=== PATIENT | female | born 1965 | race Caucasian/White ===

== ENCOUNTER 2017-08-11 18:04 | Emergency (ER) | payer OTHER ==
--- NOTE | 2017-08-11 20:01 | ER ---
Nurse's Notes [facility] Name: Ronna Pearson Age: 51 yrs Sex: Female : 1965 Arrival Date: 08/11/2017 Time: 18:07 Bed 10 Private MD: Diagnosis: Dental caries Presentation: 08/11 18:16 Presenting complaint: Patient states: yesterday morning i noticed swelling on my face, hj tooth problem, all my teeth are bad; reports chills;. Transition of care: patient was not received from another setting of care. Onset of symptoms was August 11, 2017. Care prior to arrival: None. 18:16 Method Of Arrival: Ambulatory hj 18:16 Acuity: NILO 4 hj Triage Assessment: 18:18 General: Appears in no apparent distress. uncomfortable, Behavior is calm, cooperative, hj appropriate for age. Pain: Complains of pain in right cheek. 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 - Social history:: Smoking status: Patient uses tobacco products. Screenin:27 Abuse screen: Denies threats or abuse. Denies injuries from another. Nutritional ao screening: No deficits noted. Tuberculosis screening: No symptoms or risk factors identified. Fall Risk None identified. Assessment: 20:00 General: Appears in no apparent distress. comfortable, Behavior is calm, cooperative, ao appropriate for age. General: Reports Dental Caries. Pain: Complains of pain in face. Neuro: Level of Consciousness is awake, alert, obeys commands, Oriented to person, place, time, situation, Moves all extremities. Speech is normal, Facial symmetry appears normal, Pupils are PERRLA. Cardiovascular: Heart tones S1 S2 Capillary refill < 3 seconds Patient's skin is warm and dry. Respiratory: Airway is patent Respiratory effort is even, unlabored, Respiratory pattern is regular, symmetrical, Breath sounds are clear bilaterally. GI: No signs and/or symptoms were reported involving the gastrointestinal system. : No signs and/or symptoms were reported regarding the genitourinary system. EENT: No signs and/or symptoms were reported regarding the EENT system. Derm: Swelling in the face noted. Musculoskeletal: Swelling present in face. Vital Signs: 18:19 BP 127 / 85; Pulse 86; Resp 18; Temp 97.4(TE); Pulse Ox 96% on R/A; Weight 54.43 kg; hj Height 5 ft. 3 in. (160.02 cm); Pain 10/10; 20:10 BP 125 / 85; Pulse 84; Resp 18; Pulse Ox 99% ; ao 18:19 Body Mass Index 21.26 (54.43 kg, 160.02 cm) hj ED Course: 18:07 Patient arrived in ED. rg4 18:17 Triage completed. hj 18:18 Arm band placed on right wrist. hj 19:33 Reyes Samuels RN is Primary Nurse. ao 19:36 Jesse Beck NP is PHCP. pm1 19:36 Daryn Mcmahan MD is Attending Physician. pm1 20:27 No provider procedures requiring assistance completed. Patient did not have IV access ao during this emergency room visit. 20:28 Patient has correct armband on for positive identification. ao Administered Medications: 20:17 Drug: [place] 5 mg-325 mg 1 tabs Route: PO; ao 20:17 Drug: Clindamycin 600 mg Route: IM; Site: left deltoid; ao Outcome: 20:01 Discharge ordered by MD. pm1 20:28 Discharged to home ambulatory. ao 20:28 Condition: stable 20:28 Discharge instructions given to patient, Instructed on discharge instructions, follow up and referral plans. Demonstrated understanding of instructions, follow-up care, medications, Prescriptions given X 2. 20:31 Patient left the ED. ao Signatures: Ryan Wilkes RN RN Reyes Samuels RN RN ao Marinas, Patrick, NP HIRED HELP pm1 Adriana Turpin rg4 Corrections: (The following items were deleted from the chart) 18:20 18:19 Pulse 86bpm; Resp 18bpm; Pulse Ox 96% RA; Temp 97.4F Temporal; 54.43 kg; Height 5 hj ft. 3 in.; BMI: 21.2; Pain 10/10; hj
--- NOTE | 2017-08-11 20:01 | EDPHYS ---
Physician Documentation [facility] Name: Ronna Pearson Age: 51 yrs Sex: Female : 1965 Arrival Date: 08/11/2017 Time: 18:07 Bed 10 Private MD: ED Physician Daryn Mcmahan HPI: 08/11 21:00 This 51 yrs old Female presents to ER via Ambulatory with complaints of pm1 Facial Swelling and dental pain. 08/12 03:22 The patient presents with pain, swelling. The problem is located in the right cheek. pm1 Onset: The symptoms/episode began/occurred yesterday. Duration: The symptoms are continuous. Modifying factors: The symptoms are alleviated by nothing, the symptoms are aggravated by chewing, food. Associated signs and symptoms: Pertinent positives: swelling, Pertinent negatives: dysphagia, inability to eat, vomiting. Severity of symptoms: in the emergency department the symptoms are actually worse. The patient has experienced similar episodes in the past, multiple times. 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 - Social history:: Smoking status: Patient uses tobacco products. ROS: 21:00 Constitutional: Negative for fever, chills, and weight loss, Eyes: Negative for injury, pm1 pain, redness, and discharge. 21:00 Neck: Negative for injury, pain, and swelling, Cardiovascular: Negative for chest pain, palpitations, and edema, Respiratory: Negative for shortness of breath, cough, wheezing, and pleuritic chest pain, Abdomen/GI: Negative for abdominal pain, nausea, vomiting, diarrhea, and constipation, Back: Negative for injury and pain, MS/Extremity: Negative for injury and deformity, Skin: Negative for injury, rash, and discoloration, Neuro: Negative for headache, weakness, numbness, tingling, and seizure. 21:00 ENT: Positive for dental pain, Negative for ear pain, sore throat. Exam: 21:00 Constitutional: This is a well developed, well nourished patient who is awake, alert, pm1 and in no acute distress. Head/Face: Normocephalic, atraumatic. Eyes: Pupils equal round and reactive to light, extra-ocular motions intact. Lids and lashes normal. Conjunctiva and sclera are non-icteric and not injected. Cornea within normal limits. Periorbital areas with no swelling, redness, or edema. 21:00 Neck: Trachea midline, no thyromegaly or masses palpated, and no cervical lymphadenopathy. Supple, full range of motion without nuchal rigidity, or vertebral point tenderness. No Meningismus. Chest/axilla: Normal chest wall appearance and motion. Nontender with no deformity. No lesions are appreciated. Cardiovascular: Regular rate and rhythm with a normal S1 and S2. No gallops, murmurs, or rubs. Normal PMI, no JVD. No pulse deficits. Respiratory: Lungs have equal breath sounds bilaterally, clear to auscultation and percussion. No rales, rhonchi or wheezes noted. No increased work of breathing, no retractions or nasal flaring. Back: No spinal tenderness. No costovertebral tenderness. Full range of motion. Skin: Warm, dry with normal turgor. Normal color with no rashes, no lesions, and no evidence of cellulitis. MS/ Extremity: Pulses equal, no cyanosis. Neurovascular intact. Full, normal range of motion. 21:00 ENT: External ear(s): are unremarkable, Ear canal(s): are normal, TM's: are normal, Nose: is normal, Mouth: is normal, Posterior pharynx: is normal, Dental exam: abscess, is not appreciated, dental caries, that is severe, diffusely. 21:00 Neuro: Orientation: is normal, Motor: moves all fours. Vital Signs: 18:19 BP 127 / 85; Pulse 86; Resp 18; Temp 97.4(TE); Pulse Ox 96% on R/A; Weight 54.43 kg; hj Height 5 ft. 3 in. (160.02 cm); Pain 10/10; 20:10 BP 125 / 85; Pulse 84; Resp 18; Pulse Ox 99% ; ao 18:19 Body Mass Index 21.26 (54.43 kg, 160.02 cm) MDM: 19:36 Patient medically screened. pm1 20:00 Data reviewed: vital signs. Data interpreted: Pulse oximetry: on room air is 96 %. pm1 Interpretation: normal. Counseling: I had a detailed discussion with the patient and/or guardian regarding: the historical points, exam findings, and any diagnostic results supporting the discharge/admit diagnosis, the need for outpatient follow up, for definitive care, a dentist, to return to the emergency department if symptoms worsen or persist or if there are any questions or concerns that arise at home. Administered Medications: 20:17 Drug: [place] 5 mg-325 mg 1 tabs Route: PO; ao 20:17 Drug: Clindamycin 600 mg Route: IM; Site: left deltoid; ao Disposition: 08/12 00:22 Co-signature as Attending Physician, Daryn Mcmahan MD. pkl Disposition: 08/11/17 20:01 Discharged to Home. Impression: Dental caries. - Condition is Stable. - Discharge Instructions: Dental Pain. - Prescriptions for Clindamycin HCl 300 mg Oral Capsule - take 1 capsule by ORAL route every 6 hours for 10 days; 40 capsule. Tramadol 50 mg Oral Tablet - take 1 tablet by ORAL route every 8 hours as needed; 12 tablet. - Medication Reconciliation Form, Thank You Letter, Antibiotic Education, Prescription Opioid Use form. - Follow up: Emergency Department; When: As needed; Reason: Worsening of condition. Follow up: Private Physician; When: 2 - 3 days; Reason: Recheck today's complaints, Continuance of care, Re-evaluation by your physician. - Problem is new. - Symptoms have improved. Signatures: Daryn Mcmahan MD MD pkl Ryan Wilkes, RN RN Reyes Hein, NAZIA RN Jesse Pimentel, DAY WAREHOUSE ASSEMBLY WORKER pm1
[2017-08-11] MEDS ORDERED: CLINDAMYCIN HCL 150 MG CAP ONE (20:26)
[2017-08-11] MEDS ORDERED: HYDROCODONE/APAP 5/325 MG TAB ONE (20:26)
[2017-08-11] MEDS ORDERED: CLINDAMYCIN IV 150 MG/ML (4 mL) VIAL ONE (20:30)
== END 2017-08-11 20:31 | disposition home or self-care (01) ==
LOC: ER 18:04
DX: I10 Essential (primary) hypertension; E07.9 Disorder of thyroid, unspecified; F31.9 Bipolar disorder, unspecified; Z72.0 Tobacco use; J44.9 Chronic obstructive pulmonary disease, unspecified; Z88.5 Allergy status to narcotic agent; K02.9 Dental caries, unspecified
CPT/HCPCS: 96372; 99283; S0077

== ENCOUNTER 2017-09-07 11:37 | Emergency (ER) | payer OTHER ==
[2017-09-07] MEDS ORDERED: LIDOCAINE 1% MPF 5 ML VIAL ONE (13:28)
[2017-09-07] MEDS ORDERED: CEFTRIAXONE 1000 MG/VIAL ONE (13:28)
--- NOTE | 2017-09-07 13:33 | ER ---
Nurse's Notes [facility] Name: Ronna Pearson Age: 51 yrs Sex: Female : 1965 Arrival Date: 09/07/2017 Time: 11:39 Bed 15 Private MD: Diagnosis: Acute sinusitis Presentation: 09/07 11:46 Presenting complaint: Patient states: I was a couple weeks for facial swelling and they la1 thought it was my teeth but now its happening again. Pt airway patent, respirations even and unlabored. No obvious swelling noted. Transition of care: patient was not received from another setting of care. Onset of symptoms was September 07, 2017. Initial Sepsis Screen: Does the patient meet any 2 criteria? No. Patient's initial sepsis screen is negative. Does the patient have a suspected source of infection? No. Patient's initial sepsis screen is negative. Care prior to arrival: None. 11:46 Method Of Arrival: Ambulatory la1 11:46 Acuity: NILO 3 la1 Historical: - Allergies: 11:46 Codeine; la1 - PMHx: 11:46 Bipolar disorder; COPD; Fibromyalgia; Hypertension; Thyroid problem; la1 - Immunization history:: Adult Immunizations up to date. - Social history:: Smoking status: Patient uses tobacco products, smokes one pack cigarettes per day. Screenin:00 Abuse screen: Denies threats or abuse. Denies injuries from another. Nutritional ph screening: No deficits noted. Tuberculosis screening: No symptoms or risk factors identified. Fall Risk None identified. Assessment: 13:00 General: Appears in no apparent distress. comfortable, slender, well groomed, Behavior ph is calm, cooperative, appropriate for age, Denies fever. Pain: Complains of pain in right eye, right cheek, left cheek and left eye. Neuro: Level of Consciousness is awake, alert, obeys commands, Oriented to person, place, time, situation. Cardiovascular: Capillary refill < 3 seconds Patient's skin is warm and dry. Respiratory: Airway is patent Respiratory effort is even, unlabored. GI: No signs and/or symptoms were reported involving the gastrointestinal system. EENT: Reports nasal congestion. Derm: Skin is intact, is healthy with good turgor, Skin is pink, warm \T\ dry. Musculoskeletal: Circulation, motion, and sensation intact. Range of motion: intact in all extremities, Swelling absent. Vital Signs: 11:47 BP 141 / 87; Pulse 78; Resp 16; Temp 97.6(TE); Pulse Ox 97% on R/A; Weight 54.43 kg; la1 Height 5 ft. 3 in. (160.02 cm); 11:47 Body Mass Index 21.26 (54.43 kg, 160.02 cm) la1 ED Course: 11:39 Patient arrived in ED. as 11:46 Arm band placed on left wrist. la1 11:47 Triage completed. la1 12:40 Jesse Beck NP is PHCP. pm1 12:40 Bruno Mcclendon MD is Attending Physician. pm1 13:00 Patient has correct armband on for positive identification. Bed in low position. Call light in reach. 13:21 Eva Shahid RN is Primary Nurse. ph 13:46 No provider procedures requiring assistance completed. Patient did not have IV access ph during this emergency room visit. Administered Medications: 13:30 Drug: Rocephin (cefTRIAXone) 1 grams Route: IM; Site: left gluteus; ph 13:45 Follow up: Response: No adverse reaction ph Outcome: 13:33 Discharge ordered by MD. pm1 13:46 Patient left the ED. ph 13:46 Discharged to home ambulatory. ph 13:46 Condition: good 13:46 Discharge instructions given to patient, Instructed on discharge instructions, follow up and referral plans. medication usage, Demonstrated understanding of instructions, follow-up care, medications, Prescriptions given X 1. Signatures: Luz Ingram Lee, RN RN la Eva Shahid RN RN Jesse Beck NP LICENSED DISPENSING OPTICIAN pm1
--- NOTE | 2017-09-07 13:34 | EDPHYS ---
Physician Documentation [facility] Name: Ronna Pearson Age: 51 yrs Sex: Female : 1965 Arrival Date: 09/07/2017 Time: 11:39 Bed 15 Private MD: ED Physician Bruno Mcclendon HPI: 09/07 19:23 This 51 yrs old Female presents to ER via Ambulatory with complaints of Lips pm1 Swelling, Sinus Pain. 19:23 The patient presents with sinus congestion and pain. Onset: The symptoms/episode pm1 began/occurred 3 day(s) ago. Modifying factors: The symptoms are alleviated by nothing. the symptoms are aggravated by nothing. Associated signs and symptoms: Loss of consciousness: the patient experienced no loss of consciousness, Pertinent negatives: chest pain, fever, shortness of breath, sore throat. Severity of symptoms: in the emergency department the symptoms are worse. The patient has not recently seen a physician. Historical: - Allergies: 11:46 Codeine; la1 - PMHx: 11:46 Bipolar disorder; COPD; Fibromyalgia; Hypertension; Thyroid problem; la1 - Immunization history:: Adult Immunizations up to date. - Social history:: Smoking status: Patient uses tobacco products, smokes one pack cigarettes per day. ROS: 19:23 Constitutional: Negative for fever, chills, and weight loss, Eyes: Negative for injury, pm1 pain, redness, and discharge. 19:23 Neck: Negative for injury, pain, and swelling, Cardiovascular: Negative for chest pain, palpitations, and edema, Respiratory: Negative for shortness of breath, cough, wheezing, and pleuritic chest pain, Abdomen/GI: Negative for abdominal pain, nausea, vomiting, diarrhea, and constipation, Back: Negative for injury and pain, MS/Extremity: Negative for injury and deformity, Skin: Negative for injury, rash, and discoloration, Neuro: Negative for headache, weakness, numbness, tingling, and seizure. 19:23 ENT: Positive for sinus congestion, sinus pain, Negative for rhinorrhea, sore throat, dental pain. Exam: 19:23 Constitutional: This is a well developed, well nourished patient who is awake, alert, pm1 and in no acute distress. 19:23 Eyes: Pupils equal round and reactive to light, extra-ocular motions intact. Lids and lashes normal. Conjunctiva and sclera are non-icteric and not injected. Cornea within normal limits. Periorbital areas with no swelling, redness, or edema. ENT: Nares patent. No nasal discharge, no septal abnormalities noted. Tympanic membranes are normal and external auditory canals are clear. Oropharynx with no redness, swelling, or masses, exudates, or evidence of obstruction, uvula midline. Mucous membranes moist. Neck: Trachea midline, no thyromegaly or masses palpated, and no cervical lymphadenopathy. Supple, full range of motion without nuchal rigidity, or vertebral point tenderness. No Meningismus. Chest/axilla: Normal chest wall appearance and motion. Nontender with no deformity. No lesions are appreciated. Cardiovascular: Regular rate and rhythm with a normal S1 and S2. No gallops, murmurs, or rubs. Normal PMI, no JVD. No pulse deficits. Respiratory: Lungs have equal breath sounds bilaterally, clear to auscultation and percussion. No rales, rhonchi or wheezes noted. No increased work of breathing, no retractions or nasal flaring. Abdomen/GI: Soft, non-tender, with normal bowel sounds. No distension or tympany. No guarding or rebound. No evidence of tenderness throughout. Back: No spinal tenderness. No costovertebral tenderness. Full range of motion. Skin: Warm, dry with normal turgor. Normal color with no rashes, no lesions, and no evidence of cellulitis. MS/ Extremity: Pulses equal, no cyanosis. Neurovascular intact. Full, normal range of motion. Neuro: Awake and alert, GCS 15, oriented to person, place, time, and situation. Cranial nerves II-XII grossly intact. Motor strength 5/5 in all extremities. Sensory grossly intact. Cerebellar exam normal. Normal gait. 19:23 Head/face: Noted is Sinus tenderness, that is marked, is located over the right frontal sinus, left frontal sinus, right maxillary sinus and left maxillary sinus. Vital Signs: 11:47 BP 141 / 87; Pulse 78; Resp 16; Temp 97.6(TE); Pulse Ox 97% on R/A; Weight 54.43 kg; la1 Height 5 ft. 3 in. (160.02 cm); 11:47 Body Mass Index 21.26 (54.43 kg, 160.02 cm) la1 MDM: 12:40 Patient medically screened. pm1 13:32 Data reviewed: vital signs. Data interpreted: Pulse oximetry: on room air is 97 %. pm1 Interpretation: normal. Counseling: I had a detailed discussion with the patient and/or guardian regarding: the historical points, exam findings, and any diagnostic results supporting the discharge/admit diagnosis, the need for outpatient follow up, to return to the emergency department if symptoms worsen or persist or if there are any questions or concerns that arise at home. Administered Medications: 13:30 Drug: Rocephin (cefTRIAXone) 1 grams Route: IM; Site: left gluteus; ph 13:45 Follow up: Response: No adverse reaction ph Disposition: 09/08 09:24 Co-signature as Attending Physician, Bruno Mcclendon MD I agree with the assessment and jesse plan of care. Disposition: 09/07/17 13:33 Discharged to Home. Impression: Acute sinusitis. - Condition is Stable. - Discharge Instructions: Sinusitis, Adult. - Prescriptions for Augmentin 875- 125 mg Oral Tablet - take 1 tablet by ORAL route every 12 hours for 10 days; 20 tablet. Zyrtec- D 5-120 mg Oral Tablet Sustained Release 12 hr - take 1 tablet by ORAL route every 12 hours As needed; 20 tablet. Tramadol 50 mg Oral Tablet - take 1 tablet by ORAL route every 8 hours as needed; 12 tablet. - Medication Reconciliation Form, Thank You Letter, Antibiotic Education, Prescription Opioid Use form. - Follow up: Emergency Department; When: As needed; Reason: Worsening of condition. Follow up: Private Physician; When: 2 - 3 days; Reason: Recheck today's complaints, Continuance of care, Re-evaluation by your physician. - Problem is new. - Symptoms have improved. Signatures: Bruno Mcclendon MD MD cha Attema, Lee RN RN la1 Eva Shahid RN Jesse Espino ph, DAY CARDBOARD INSERTER pm1
== END 2017-09-07 13:46 | disposition home or self-care (01) ==
LOC: ER 11:37
DX: J01.90 Acute sinusitis, unspecified (principal)
CPT/HCPCS: 96372; 99283

== ENCOUNTER 2018-07-07 20:13 | Emergency (ER) | payer OTHER ==
--- NOTE | 2018-07-07 21:01 | EDPHYS ---
Physician Documentation [facility] Name: Ronna Pearson Age: 52 yrs Sex: Female : 1965 Arrival Date: 07/07/2018 Time: 20:21 Bed 11 Private MD: ED Physician Lennox Lopes HPI: 07/07 20:58 This 52 yrs old Female presents to ER via Ambulatory with complaints of gs Toothache. 20:58 The patient presents with pain, swelling. The problem is located in the lower left gs first molar. Onset: The symptoms/episode began/occurred 2 day(s) ago. Duration: The symptoms are continuous. Modifying factors: the symptoms are aggravated by chewing. Associated signs and symptoms: Pertinent negatives: dysphagia, fever. Severity of symptoms: At their worst the symptoms were moderate, in the emergency department the symptoms are unchanged. 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 - Social history:: Smoking status: Patient uses tobacco products, denies chronic smoking, but will smoke occasionally. - Ebola Screening: : No symptoms or risks identified at this time. ROS: 20:58 All other systems are negative. gs Exam: 20:58 Head/Face: Normocephalic, atraumatic. Eyes: Pupils equal round and reactive to light, gs extra-ocular motions intact. Lids and lashes normal. Conjunctiva and sclera are non-icteric and not injected. Cornea within normal limits. Periorbital areas with no swelling, redness, or edema. Neck: Trachea midline, no thyromegaly or masses palpated, and no cervical lymphadenopathy. Supple, full range of motion without nuchal rigidity, or vertebral point tenderness. No Meningismus. Chest/axilla: Normal chest wall appearance and motion. Nontender with no deformity. No lesions are appreciated. Cardiovascular: Regular rate and rhythm with a normal S1 and S2. No gallops, murmurs, or rubs. Normal PMI, no JVD. No pulse deficits. Respiratory: Lungs have equal breath sounds bilaterally, clear to auscultation and percussion. No rales, rhonchi or wheezes noted. No increased work of breathing, no retractions or nasal flaring. Abdomen/GI: Soft, non-tender, with normal bowel sounds. No distension or tympany. No guarding or rebound. No evidence of tenderness throughout. Back: No spinal tenderness. No costovertebral tenderness. Full range of motion. Skin: Warm, dry with normal turgor. Normal color with no rashes, no lesions, and no evidence of cellulitis. MS/ Extremity: Pulses equal, no cyanosis. Neurovascular intact. Full, normal range of motion. Neuro: Awake and alert, GCS 15, oriented to person, place, time, and situation. Cranial nerves II-XII grossly intact. Motor strength 5/5 in all extremities. Sensory grossly intact. Cerebellar exam normal. Normal gait. 20:58 Constitutional: The patient appears alert, awake. 20:58 ENT: Dental exam: cellulitis, that is mild, dental caries, that is severe, diffusely, fractured teeth are noted. 21:01 ENT: Dental exam: missing teeth, pain, mild swelling no abscess. Vital Signs: 20:24 BP 136 / 88; Pulse 92; Resp 18; Temp 97.4(O); Pulse Ox 95% on R/A; Weight 56.7 kg; lp1 Height 5 ft. 3 in. (160.02 cm); Pain 9/10; 20:24 Body Mass Index 22.14 (56.70 kg, 160.02 cm) lp1 MDM: 20:57 Patient medically screened. gs 20:58 Differential diagnosis: dental caries, gingivitis, dental abscess. Data reviewed: vital gs signs, nurses notes. Counseling: I had a detailed discussion with the patient and/or guardian regarding: the historical points, exam findings, and any diagnostic results supporting the discharge/admit diagnosis, the need for outpatient follow up, a dentist. Response to treatment: the patient's symptoms have mildly improved after treatment, and as a result, I will discharge patient. Administered Medications: 21:15 Drug: [place] 5 mg-325 mg 1 tabs Route: PO; rv 21:15 Follow up: Response: Medication administered at discharge. rv 21:15 Drug: Amoxicillin 875 mg Route: PO; rv 21:16 Follow up: Response: Medication administered at discharge. rv Disposition: 07/07/18 21:00 Discharged to Home. Impression: Dental caries, Cellulitis and abscess of mouth. - Condition is Stable. - Discharge Instructions: Dental Caries, Adult. - Prescriptions for Augmentin 875- 125 mg Oral Tablet - take 1 tablet by ORAL route every 12 hours for 10 days; 20 tablet. - Medication Reconciliation Form, Thank You Letter, Antibiotic Education, Prescription Opioid Use form. - Follow up: Private Physician; When: 2 - 3 days; Reason: Re-evaluation by your physician. - Problem is new. - Symptoms have improved. Signatures: Jeanine Woods RN RN lp1 Lennox Lopes MD MD gs Piotr Hewitt RN RN rv Corrections: (The following items were deleted from the chart) 21:18 21:00 07/07/2018 21:00 Discharged to Home. Impression: Dental caries; Cellulitis and rv abscess of mouth. Condition is Stable. Forms are Medication Reconciliation Form, Thank You Letter, Antibiotic Education, Prescription Opioid Use. Follow up: Private Physician; When: 2 - 3 days; Reason: Re-evaluation by your physician. Problem is new. Symptoms have improved. gs
--- NOTE | 2018-07-07 21:01 | ER ---
Nurse's Notes [facility] Name: Ronna Pearson Age: 52 yrs Sex: Female : 1965 Arrival Date: 07/07/2018 Time: 20:21 Bed 11 Private MD: Diagnosis: Dental caries;Cellulitis and abscess of mouth Presentation: 07/07 20:21 Presenting complaint: Patient states: abscess to left side of mouth that began lp1 yesterday; States having appt with dentist next month; swelling noted to left lower side of mouth. Transition of care: patient was not received from another setting of care. Onset of symptoms was July 07, 2018. Risk Assessment: Do you want to hurt yourself or someone else? Patient reports no desire to harm self or others. Initial Sepsis Screen: Does the patient meet any 2 criteria? No. Patient's initial sepsis screen is negative. Does the patient have a suspected source of infection? No. Patient's initial sepsis screen is negative. Care prior to arrival: None. 20:21 Method Of Arrival: Ambulatory lp1 20:21 Acuity: NILO 4 lp1 Triage Assessment: 21:18 EENT: Reports pain in left cheek and left jaw. 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 - Social history:: Smoking status: Patient uses tobacco products, denies chronic smoking, but will smoke occasionally. - Ebola Screening: : No symptoms or risks identified at this time. Screenin:24 Abuse screen: Denies threats or abuse. Denies injuries from another. Nutritional lp1 screening: No deficits noted. Tuberculosis screening: No symptoms or risk factors identified. Fall Risk None identified. Assessment: 21:16 General: Appears in no apparent distress. uncomfortable, Behavior is calm, cooperative. rv Pain: Complains of pain in face. Neuro: Level of Consciousness is awake, alert, obeys commands, Oriented to person, place, time, situation. Cardiovascular: Capillary refill < 3 seconds. Respiratory: Airway is patent. GI: No signs and/or symptoms were reported involving the gastrointestinal system. : No signs and/or symptoms were reported regarding the genitourinary system. EENT: Dental caries noted in lower left third molar (#17), lower left second molar (#18), lower left first molar (#19) and lower left second bicuspid (#20). Derm: Skin is intact. Musculoskeletal: Swelling present in face. Vital Signs: 20:24 BP 136 / 88; Pulse 92; Resp 18; Temp 97.4(O); Pulse Ox 95% on R/A; Weight 56.7 kg; lp1 Height 5 ft. 3 in. (160.02 cm); Pain 9/10; 20:24 Body Mass Index 22.14 (56.70 kg, 160.02 cm) lp1 ED Course: 20:21 Patient arrived in ED. es 20:22 Triage completed. lp1 20:22 Arm band placed on left wrist. lp1 20:47 Lennox Lopes MD is Attending Physician. 21:17 Patient has correct armband on for positive identification. Bed in low position. Call rv light in reach. Pulse ox on. 21:17 No provider procedures requiring assistance completed. Patient did not have IV access rv during this emergency room visit. Administered Medications: 21:15 Drug: [place] 5 mg-325 mg 1 tabs Route: PO; rv 21:15 Follow up: Response: Medication administered at discharge. rv 21:15 Drug: Amoxicillin 875 mg Route: PO; rv 21:16 Follow up: Response: Medication administered at discharge. rv Outcome: 21:00 Discharge ordered by . gs 21:17 Discharged to home ambulatory. rv 21:17 Condition: good 21:17 Discharge instructions given to patient, Instructed on discharge instructions, follow up and referral plans. medication usage, Demonstrated understanding of instructions, follow-up care, medications, Prescriptions given X 1. 21:18 Patient left the ED. rv Signatures: Margoth Zavala Laura, RN RN lp1 Lennox Lopes MD MD Piotr Hewitt RN RN rv
[2018-07-07] MEDS ORDERED: HYDROCODONE/APAP 5/325 MG TAB ONE (21:19)
[2018-07-07] MEDS ORDERED: AMOX/K CLAV 875 MG TAB ONE (21:22)
== END 2018-07-07 21:18 | disposition home or self-care (01) ==
LOC: ER 20:13
DX: K02.9 Dental caries, unspecified (principal); K12.2 Cellulitis and abscess of mouth; F31.9 Bipolar disorder, unspecified; J44.9 Chronic obstructive pulmonary disease, unspecified; I10 Essential (primary) hypertension; Z88.5 Allergy status to narcotic agent
CPT/HCPCS: 99283

== ENCOUNTER 2023-04-23 15:41 | Inpatient (IN) | payer OTHER ==
--- OUTSIDE RECORDS SUMMARY | 2023-04-23 15:43 | XMS REPORT | Continuity of Care Document ---
Author Name Unknown Address [address] [place] [address] [facility] thconnect Address [address] [place] [address] Care Team Providers Care Cake Decorator Name Role Phone Juan Calderón Primary Care Physician [phone] ANA ROME S Attending Clinician Unavailable Ana Larry S Attending Clinician [phone] Doctor Unassigned, [place] Attending Clinician U Oscar Murphy MD Attending Clinician [phone] Vee Raines RN Attending Clinician Unavailab OSCAR Jackson Attending Clinician Unavailable GISELA GALINDO Attending Clinician Unavailable WINDY PALOMARES Attending Clinician Unavailable DEVEN GIMENEZ Attending Clinician Unavailable OSCAR LINN Admitting Clinician Unavailable Oscar Linn MD Admitting Clinician [phone] EMERGENCY ROOM, EMERGENCY Admitting Clinician Un available Payers Payer Name Policy Type Policy Number Effective Date Expirati on Date Source [facility] DUAL COMP HMO D SNP [id number] 2022 00:00:00 Problems Condition Name Condition Details Condition Category Status Onset Date Resolution Date Last Treatment Date Treating Clinician Comments Source Hypoxia Hypoxia Disease Active 06-07 00:00: 00 [facility] Chest pain Chest pain Disease Active 12-19 00:00: 00 [facility] COPD exacerbati on COPD exacerbati on Disease Active 12-19 00:00: 00 [facility] Cigarette smoker Cigarette smoker Disease Active 12-19 00:00: 00 [facility] Essential hypertensi on Essential hypertensi on Disease Active 12-19 00:00: 00 [facility] Family history of early CAD Family history of early CAD Disease Active 12-19 00:00: 00 [facility] Allergies, Adverse Reactions, Alerts Allergy Name Allergy Type Status Severity Reaction(s) Onset Date Inactive Date Treating Clinician Comments Source NO KNOWN ALLERGIE S Drug Class Active [facility] Social History Social Habit Start Date Stop Date Quantity Comments Source History of tobacco use Cigarette Smoker [facility] Exposure to SARS-CoV-2 (event) 2022-07-04 00:00:00 2022-07-14 22:58:00 Not sure [facility] Cigarettes smoked current (pack per day) - Reported 2021-06-27 00:00:00 2021-06-27 00:00:00 [facility] Cigarette pack-years 2021-06-27 00:00:00 2021-06-27 00:00:00 [facility] Tobacco use and exposure 2021-06-27 00:00:00 2021-06-27 00:00:00 Smokeless tobacco non-user [facility] Alcohol intake 2021-06-27 00:00:00 2021-06-27 00:00:00 Ex-drinker (finding) [facility] Sex Ass[birth year] At 1965 00:00:00 1965 00:00:00 [facility] Smoking Status Start Date Stop Date Source Smokes tobacco daily 2021-06-27 00:00:00 [facility] Medications Ordered Medication Name Filled Medication Name Start Date Stop Date Current Medication? Ordering Clinician Indication Dosage Frequency Signature (SIG) Comments Components Source ARIPiprazol e 5 mg tablet 06-10 04:34: 04 Yes 5mg Take 5 mg by mouth daily. [facility] traZODone 50 mg tablet 06-10 04:34: 04 Yes 50mg Take 50 mg by mouth at bedtime. [facility] ARIPiprazol e 5 mg tablet 06-10 04:34: 04 Yes 5mg Take 5 mg by mouth daily. [facility] traZODone 50 mg tablet 06-10 04:34: 04 Yes 50mg Take 50 mg by mouth at bedtime. [facility] ARIPiprazol e 5 mg tablet 06-10 04:34: 04 Yes 5mg Take 5 mg by mouth daily. [facility] traZODone 50 mg tablet 06-10 04:34: 04 Yes 50mg Take 50 mg by mouth at bedtime. [facility] ARIPiprazol e 5 mg tablet 06-10 04:34: 04 Yes 5mg Take 5 mg by mouth daily. [facility] traZODone 50 mg tablet 06-10 04:34: 04 Yes 50mg Take 50 mg by mouth at bedtime. [facility] ARIPiprazol e 5 mg tablet 06-10 04:34: 04 Yes 5mg Take 5 mg by mouth daily. [facility] traZODone 50 mg tablet 06-10 04:34: 04 Yes 50mg Take 50 mg by mouth at bedtime. [facility] ARIPiprazol e 5 mg tablet 06-10 04:34: 04 Yes 5mg Take 5 mg by mouth daily. [facility] traZODone 50 mg tablet 06-10 04:34: 04 Yes 50mg Take 50 mg by mouth at bedtime. [facility] clonazePAM 1 mg tablet 06-08 16:34: 26 Yes 1mg Take 1 mg by mouth 3 (three) times daily. [facility] levothyroxi ne 75 mcg tablet 06-08 16:34: 26 Yes 75ug Take 75 mcg by mouth every morning. [facility] DULoxetine 30 mg capsule 06-08 16:34: 26 Yes 30mg Take 30 mg by mouth daily. [facility] clonazePAM 1 mg tablet 06-08 16:34: 26 Yes 1mg Take 1 mg by mouth 3 (three) times daily. [facility] levothyroxi ne 75 mcg tablet 06-08 16:34: 26 Yes 75ug Take 75 mcg by mouth every morning. [facility] DULoxetine 30 mg capsule 06-08 16:34: 26 Yes 30mg Take 30 mg by mouth daily. [facility] clonazePAM 1 mg tablet 06-08 16:34: 26 Yes 1mg Take 1 mg by mouth 3 (three) times daily. [facility] levothyroxi ne 75 mcg tablet 06-08 16:34: 26 Yes 75ug Take 75 mcg by mouth every morning. [facility] DULoxetine 30 mg capsule 06-08 16:34: 26 Yes 30mg Take 30 mg by mouth daily. [facility] clonazePAM 1 mg tablet 06-08 16:34: 26 Yes 1mg Take 1 mg by mouth 3 (three) times daily. [facility] levothyroxi ne 75 mcg tablet 06-08 16:34: 26 Yes 75ug Take 75 mcg by mouth every morning. [facility] DULoxetine 30 mg capsule 06-08 16:34: 26 Yes 30mg Take 30 mg by mouth daily. [facility] clonazePAM 1 mg tablet 06-08 16:34: 26 Yes 1mg Take 1 mg by mouth 3 (three) times daily. [facility] levothyroxi ne 75 mcg tablet 06-08 16:34: 26 Yes 75ug Take 75 mcg by mouth every morning. [facility] DULoxetine 30 mg capsule 06-08 16:34: 26 Yes 30mg Take 30 mg by mouth daily. [facility] clonazePAM 1 mg tablet 06-08 16:34: 26 Yes 1mg Take 1 mg by mouth 3 (three) times daily. [facility] levothyroxi ne 75 mcg tablet 06-08 16:34: 26 Yes 75ug Take 75 mcg by mouth every morning. [facility] DULoxetine 30 mg capsule 06-08 16:34: 26 Yes 30mg Take 30 mg by mouth daily. [facility] predniSONE 50 mg tablet 06-08 00:00: 00 Yes [id number] 50mg Take 1 tablet by mouth daily. [facility] albuterol-i pratropium 20-100 mcg/actuati on inhaler 06-08 00:00: 00 Yes [id number] 1{puff} Inhale 1 Puff every 6 (six) hours. [facility] predniSONE 50 mg tablet 06-08 00:00: 00 Yes [id number] 50mg Take 1 tablet by mouth daily. [facility] albuterol-i pratropium 20-100 mcg/actuati on inhaler 06-08 00:00: 00 Yes [id number] 1{puff} Inhale 1 Puff every 6 (six) hours. [facility] predniSONE 50 mg tablet 06-08 00:00: 00 Yes [id number] 50mg Take 1 tablet by mouth daily. [facility] albuterol-i pratropium 20-100 mcg/actuati on inhaler 06-08 00:00: 00 Yes [id number] 1{puff} Inhale 1 Puff every 6 (six) hours. [facility] predniSONE 50 mg tablet 06-08 00:00: 00 Yes [id number] 50mg Take 1 tablet by mouth daily. [facility] albuterol-i pratropium 20-100 mcg/actuati on inhaler 06-08 00:00: 00 Yes [id number] 1{puff} Inhale 1 Puff every 6 (six) hours. [facility] predniSONE 50 mg tablet 06-08 00:00: 00 Yes [id number] 50mg Take 1 tablet by mouth daily. [facility] albuterol-i pratropium 20-100 mcg/actuati on inhaler 06-08 00:00: 00 Yes [id number] 1{puff} Inhale 1 Puff every 6 (six) hours. [facility] predniSONE 50 mg tablet 06-08 00:00: 00 Yes [id number] 50mg Take 1 tablet by mouth daily. [facility] albuterol-i pratropium 20-100 mcg/actuati on inhaler 06-08 00:00: 00 Yes [id number] 1{puff} Inhale 1 Puff every 6 (six) hours. [facility] amLODIPine 5 mg tablet 12-21 00:00: 00 Yes 5mg Take 1 tablet by mouth daily. [facility] amLODIPine 5 mg tablet 12-21 00:00: 00 Yes 5mg Take 1 tablet by mouth daily. [facility] amLODIPine 5 mg tablet 12-21 00:00: 00 Yes 5mg Take 1 tablet by mouth daily. [facility] amLODIPine 5 mg tablet 12-21 00:00: 00 Yes 5mg Take 1 tablet by mouth daily. [facility] amLODIPine 5 mg tablet 12-21 00:00: 00 Yes 5mg Take 1 tablet by mouth daily. [facility] amLODIPine 5 mg tablet 12-21 00:00: 00 Yes 5mg Take 1 tablet by mouth daily. [facility] Vital Signs Vital Name Observation Time Observation Value Comments S oureed Systolic blood pressure 2022-07-15 06:00:00 132 mm[Hg] [facility] Diastolic blood pressure 2022-07-15 06:00:00 96 mm[Hg] [facility] Heart rate 2022-07-15 06:00:00 81 /min [facility] Respiratory rate 2022-07-15 06:00:00 15 /min [facility] Oxygen saturation in Arterial blood by Pulse oximetry 2022-07-15 06:00:00 93 /min [facility] Body temperature 2022-07-15 05:04:00 37.28 Erika [facility] Body height 2022-07-15 05:04:00 160 cm [facility] Body weight 2022-07-15 05:04:00 58.968 kg [facility] BMI 2022-07-15 05:04:00 23.03 kg/m2 [facility] Procedures Procedure Date / Time Performed Performing Clinicia n Source EXTERNAL PROVIDER - ADC REFERRAL 2021-10-22 05:01:00 Doctor Unassigned, [place] [facility] EXTERNAL PROVIDER RECORDS 2021-06-25 06:01:00 Doctor Unassigned, [place] [facility] Encounters Start Date/Time End Date/Time Encounter Type Admission Type Attending Clinicians Care Facility Care Department Encounter ID Source 2022-07-14 22:52:00 2022-07-15 00:28:00 Emergency X ANA ROME [facility] ERT [id number] [facility] 2022-07-14 22:52:00 2022-07-15 00:28:00 Emergency Ana Rome S [facility] [id number] [id number] [id number] [facility] 2021-10-22 00:00:00 2021-10-22 00:00:00 Orders Only Doctor Unassigned, [place] [facility] [id number] 350.1.13.10 [id number] [id number] [facility] 2021-08-20 00:00:00 2021[facility]08[facility]20 [facility] [id number] [id number] [id number] [id number] [facility] 2021-08-20 00:00:00 2021-08-20 00:00[facility] [id number] [id number] [id number] [id number] [facility] 2021-06-25 00:00:00 2021-06-25 00:00:00 Orders Only Doctor Unassigned, [place] [facility] [id number] 350.1.13.10 [id number] [id number] [facility] 2021-06-11 00:00:00 2021-06-11 00:00:00 Transition of Care Vee Raines ANTONIOLuis Alberto ANDRE [facility] [id number] [id number] [id number] [id number] [facility] 2021-06-06 23:58:00 2021-06-08 16:34:00 [id number] 2021-06-06 23:58:00 2021-06-08 16:34:00 [facility] [id number] [id number] [id number] [id number] [facility] 2021-06-06 23:58:00 2021-06-08 16:34:00 [facility] [id number] [facility] 2020-09-22 15:50:00 2020-09-22 15:50:00 Outpatient GISELA GONZALES [facility] [id number] [facility] 2020-08-30 16:00:00 2020-08-30 15:50:44 Outpatient GISELA GONZALES [facility] [id number] [facility] 2020-06-20 09:40:00 2020-06-20 09:40:00 Outpatient WINDY JAMESON [facility] [id number] [facility] 2004-12-25 12:13:00 2004-12-25 17:57:00 Emergency X DEVEN GIMENEZ [facility] ERT [id number] [facility]
[2023-04-23 16:32] LABS: Absolute Lymphocytes (CBC) 1.8 K/uL (0.7-4.9); Hematocrit 45.5 % (36.0-45.0); Lymphocytes % 27.9 % (15.3-44.8); MPV 8.4 fL (7.6-11.3); Platelets 136 thou/uL (152-406); RBC Red Blood Cell Count 4.89 M/uL (3.86-4.86)
[2023-04-23 16:39] LABS: Protime INR 1.07
[2023-04-23] MEDS ORDERED: IBUPROFEN 400 MG TAB ONE (16:41)
[2023-04-23] MEDS ORDERED: LEVALBUTEROL 1.25 MG/3 ML NEB ONE (16:41)
[2023-04-23] MEDS ORDERED: NA CHLORIDE 0.9% 500 ML ONE (16:41)
[2023-04-23] MEDS ORDERED: METHYLPREDNISOLONE 125 MG INJ ONE (16:41)
[2023-04-23 16:43] LABS: SARS-CoV-2 Antigen Rapid Res Negative (Negative)
[2023-04-23 16:48] LABS: Albumin 3.2 g/dL (3.4-5.0); Bilirubin Total 0.5 mg/dL (0.2-1.0); Potassium 3.9 mEq/L (3.5-5.1); Protein, Total 7.8 g/dL (6.4-8.2)
--- NOTE | 2023-04-23 17:36 | RAD REPORT ---
EXAM DESCRIPTION: RAD - Chest Single View - 04/23/2023 5:04 pm CLINICAL HISTORY: COPD;Cough;Dyspnea Chest pain. COMPARISON: Chest Pa And Lat (2 Views) dated 02/23/2019; Chest Single View dated 06/08/2016; Chest Sin gle View dated 01/12/2016; CHEST PA AND LAT 2 VIEW dated 07/15/2015 FINDINGS: Portable technique limits examination quality. The lungs are mildly emphysematous. Mild opacity is present in the right lung base laterally likely r epresenting infiltrate/ pneumonia. The heart is normal in size. No displaced fractures. IMPRESSION: Developing right base pneumonia suspected.
--- NOTE | 2023-04-23 17:43 | EDPHYS ---
Physician Documentation [facility] Name: Ronna Pearson Age: 57 yrs Sex: Female : 1965 Arrival Date: 04/23/2023 Time: 15:41 Bed 5 Private MD: ED Physician Aleksander Castro HPI: 04/23 16:24 This 57 yrs old Female presents to ER via Ambulatory with complaints of Shortness Of rn Breath, Cough. 16:24 The patient has shortness of breath at rest, with light activity. Onset: The rn symptoms/episode began/occurred 5 day(s) ago. Duration: The symptoms are continuous. The patient's shortness of breath is aggravated by coughing, exertion. Associated signs and symptoms: Pertinent positives: non-productive cough, Pertinent negatives: chest pain, fever, hemoptysis. Severity of symptoms: At their worst the symptoms were moderate in the emergency department the symptoms have improved. The patient has experienced similar episodes in the past. Patient reports feeling sick for 1 week, shortness of breath starting 3 days ago. Inhalers help a little bit but shortness of breath returns. Reports myalgias and generalized weakness but no fever. No hemoptysis. No history of DVT or PE. Has history of COPD. sent from clinic for evaluation today. Given nebulizer treatment prior to sending here.. Historical: - Allergies: 15:58 Codeine; db - PMHx: 15:58 Bipolar disorder; Fibromyalgia; Hypertension; COPD; Thyroid problem; db - Immunization history:: Adult Immunizations unknown. - Social history:: Smoking status: Patient reports the use of cigarette tobacco products, smokes one-half pack cigarettes per day, . - Family history:: not pertinent. - Hospitalizations: : No recent hospitalization is reported. ROS: 16:24 Constitutional: Negative for fever, chills, and weight loss, Cardiovascular: Negative rn for chest pain, palpitations, and edema, Respiratory: Positive for shortness of breath and cough Abdomen/GI: Negative for abdominal pain, nausea, vomiting, diarrhea, and constipation, MS/Extremity: Negative for injury and deformity, Skin: Negative for injury, rash, and discoloration, Neuro: Positive for generalized weakness Exam: 16:24 Constitutional: This is a well developed, well nourished patient who is awake, alert, rn mild tachypnea Head/Face: Normocephalic, atraumatic. Cardiovascular: Regular rate and rhythm. No pulse deficits. Respiratory: Mild tachypnea, faint expiratory wheezing, poor inspiratory airflow Abdomen/GI: Soft, non-tender Skin: Warm, dry MS/ Extremity: Pulses equal, no cyanosis. Neuro: Awake and alert, GCS 15 17:16 ECG was reviewed by the Attending Physician. rn Vital Signs: 15:55 BP 106 / 84; Pulse 95; Resp 22; Temp 98.6(TE); Pulse Ox 88% on R/A; Weight 64.86 kg; db Height 5 ft. 3 in. ; 18:00 BP 114 / 76; Pulse 83; Resp 24; Pulse Ox 89% on R/A; me1 20:00 BP 122 / 85; Pulse 89; Resp 22; Pulse Ox 92% on R/A; me1 22:00 BP 109 / 78; Pulse 74; Resp 22; Pulse Ox 90% on R/A; me1 22:00 BP 109 / 78; Pulse 74; Resp 20; Pulse Ox 90% ; vc1 15:55 Body Mass Index 25.33 (64.86 kg, 160.02 cm) db 15:55 DR. CASTRO IN ROOM FOR TRIAGE AND AWARE OF INITIAL O2 SAT db 22:00 refuses oxygen vc1 MDM: 15:49 Patient medically screened. rn 17:39 Differential diagnosis: pneumonia, Pneumothorax pulmonary edema. Data reviewed: vital rn signs, nurses notes, lab test result(s), radiologic studies, plain films, and as a result, I will discharge patient. Counseling: I had a detailed discussion with the patient and/or guardian regarding the historical points, exam findings, and any diagnostic results supporting the discharge/admit diagnosis, lab results, radiology results, the need for outpatient follow up, to return to the emergency department if symptoms worsen or persist or if there are any questions or concerns that arise at home. 17:41 ED course: Patient with developing pneumonia on x-ray, oxygen 88%, not on home O2, rn still tachypneic. Will admit to hospitalist service for further care and IV antibiotics. 04/23 15:58 Order name: Blood Culture Adult (2) rn 04/23 15:58 Order name: CBC with Diff; Complete Time: 16:53 rn 04/23 15:58 Order name: CMP; Complete Time: 16:53 rn 04/23 15:58 Order name: Lactate w/ 2H reflex if indic.; Complete Time: 16:53 rn 04/23 15:58 Order name: Protime (+inr); Complete Time: 16:53 rn 04/23 15:58 Order name: Ptt, Activated; Complete Time: 16:53 rn 04/23 15:58 Order name: Flu; Complete Time: 16:53 rn 04/23 15:58 Order name: SARS RAPID; Complete Time: 16:53 rn 04/23 18:16 Order name: Urinalysis w/ reflexes EDMS 04/23 18:16 Order name: CBC with Automated Diff EDMS 04/23 18:16 Order name: CBC with Automated Diff EDMS 04/23 18:16 Order name: Comprehensive Metabolic Panel EDMS 04/23 18:16 Order name: Comprehensive Metabolic Panel EDMS 04/23 15:58 Order name: Chest Single View XRAY; Complete Time: 17:37 rn 04/23 15:58 Order name: EKG; Complete Time: 16:15 rn 04/23 15:58 Order name: Accucheck; Complete Time: 23:31 rn 04/23 15:58 Order name: Cardiac monitoring; Complete Time: 23:31 rn 04/23 15:58 Order name: EKG - Nurse/Tech; Complete Time: 23:31 rn 04/23 15:58 Order name: IV Saline Lock - Large Bore; Complete Time: 16:25 rn 04/23 15:58 Order name: Labs collected and sent; Complete Time: 16:25 rn 04/23 15:58 Order name: O2 Per Protocol; Complete Time: 16:25 rn 04/23 15:58 Order name: O2 Sat Monitoring; Complete Time: 16:25 rn 04/23 15:58 Order name: Vital Signs; Complete Time: 16:25 rn EC:16 Rate is 84 beats/min. Rhythm is regular. QRS [place] is Normal. RI interval is normal. QRS rn interval is normal. QT interval is normal. No Q waves. T waves are Normal. No ST changes noted. Clinical impression: Normal ECG. Interpreted by me. Reviewed by me. Administered Medications: 16:30 Drug: Ibuprofen PO 800 mg PO once Route: PO; rs5 17:01 Follow up: Response: No adverse reaction me1 16:30 Drug: MethylPrednisoLONE IVP 125 mg IVP once Route: IVP; Site: right antecubital; rs5 17:01 Follow up: Response: No adverse reaction me1 16:30 Drug: Levalbuterol Inhalation 1.25 mg Inhalation once Route: Inhalation; rs5 17:01 Follow up: Response: No adverse reaction me1 16:30 Drug: NS 0.9% IV 500 ml IV at bolus once Route: IV; Rate: bolus; Site: right rs5 antecubital; 22:06 Follow up: IV Status: Completed infusion me1 18:36 Drug: Rocephin IV 1 grams IV at calculated rate once; Given slow IV push per pharmacy me1 instructions Route: IV; Rate: calculated rate; Site: right antecubital; 18:36 Follow up: Response: No adverse reaction; IV Status: Completed infusion me1 18:36 Drug: Zithromax IVPB 500 mg IVPB once over 1 hrs; mix in 250 mL NS Route: IVPB; Infused me1 Over: 1 hrs; Site: right antecubital; 19:36 Follow up: Response: No adverse reaction; IV Status: Completed infusion me1 Disposition Summary: 04/23/23 17:43 Hospitalization Ordered Notes: Hospitalization Status: Inpatient Admission rn Provider: Eduin Bravo rn Condition: Stable rn Problem: new rn Symptoms: are unchanged rn Bed/Room Type: Standard rn [facility]04[facility] 14:08[facility] em1 Room Assignment: [facility](04/24/23 14:08) em1 Diagnosis - Pneumonia, unspecified organism rn - COPD/ Chronic obstructive pulmonary disease with acute lower respiratory infection rn - 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 rn Inhalers help a little bit but shortness of breath returns. Reports myalgias and generalized weakness but no fever. No hemoptysis. No history of DVT or PE. Has history of COPD. rn 18: 17:43 Telemetry/[facility] (Inpatient) rn bd : 17:43 rn bd 04/24 14:08 12 18:04 [facility] ER HOLD bd em1 04/24 14:08 12 18:04 ERHOLD- bd em1
--- NOTE | 2023-04-23 17:43 | ER ---
Nurse's Notes [facility] Name: Ronna Pearson Age: 57 yrs Sex: Female : 1965 Arrival Date: 04/23/2023 Time: 15:41 Bed 5 Private MD: Diagnosis: Pneumonia, unspecified organism;COPD/ Chronic obstructive pulmonary disease with acute lower respiratory infection;Hypoxemia Presentation: 04/23 15:55 Chief complaint: Patient states: SOB WITH COUGH WORSE TODAY. Coronavirus screen: Client db denies travel out of the [place] in the last 14 days. At this time, the client does not indicate any symptoms associated with coronavirus-19. Ebola Screen: Patient negative for fever greater than or equal to 101.5 degrees Fahrenheit, and additional compatible Ebola Virus Disease symptoms Patient denies exposure to infectious person. Patient denies travel to an Ebola-affected area in the 21 days before illness onset. No symptoms or risks identified at this time. Initial Sepsis Screen: Does the patient meet any 2 criteria? No. Patient's initial sepsis screen is negative. Does the patient have a suspected source of infection? No. Patient's initial sepsis screen is negative. Risk Assessment: Do you want to hurt yourself or someone else? Patient reports no desire to harm self or others. Onset of symptoms was April 23, 2023. 15:55 Method Of Arrival: Ambulatory db 15:55 Acuity: NILO 2 db Triage Assessment: 15:57 General: Appears in no apparent distress. uncomfortable, Behavior is calm, cooperative. db Pain: Complains of pain in chest. Neuro: Level of Consciousness is awake, alert, obeys commands, Oriented to person, place, time, situation. Respiratory: Reports shortness of breath cough that is Breath sounds are diminished bilaterally. Onset: The symptoms/episode began/occurred gradually, the patient has moderate shortness of breath. Historical: - Allergies: 15:58 Codeine; db - PMHx: 15:58 Bipolar disorder; Fibromyalgia; Hypertension; COPD; Thyroid problem; db - Immunization history:: Adult Immunizations unknown. - Social history:: Smoking status: Patient reports the use of cigarette tobacco products, smokes one-half pack cigarettes per day, . - Family history:: not pertinent. - Hospitalizations: : No recent hospitalization is reported. Screenin:40 [facility] ED Fall Risk Assessment (Adult) History of falling in the last 3 months, me1 including since admission No falls in past 3 months (0 pts) Confusion or Disorientation No (0 pts) Intoxicated or Sedated No (0 pts) Impaired Gait No (0 pts) Mobility Assist Device Used No (0 pt) Altered Elimination No (0 pt) Score/Fall Risk Level 0 - 2 = Low Risk Maintained a safe environment, Provided non-skid footwear, Hourly rounding (assess needs \T\ fall precautionary measures) done. Abuse screen: Denies threats or abuse. Tuberculosis screening: No symptoms or risk factors identified. 18:40 Nutritional screening: No deficits noted. me1 Assessment: 18:40 General: Appears uncomfortable, well groomed, well developed, well nourished, Behavior me1 is calm, cooperative, appropriate for age. Pain: Denies pain. Neuro: Level of Consciousness is awake, alert, obeys commands, Oriented to person, place, time, situation, Appropriate for age. Cardiovascular: Capillary refill < 3 seconds Patient's skin is warm and dry. Cardiovascular: Rhythm is sinus rhythm. Respiratory: Reports shortness of breath on exertion cough that is persistent since one week ago but worse today. Airway is patent Respiratory effort is even, unlabored, Respiratory pattern is regular, symmetrical. 22:30 Reassessment: Patient and/or family updated on plan of care and expected duration. Pain vc1 level reassessed. Patient is alert, oriented x 3, equal unlabored respirations, skin warm/dry/pink. Patient states feeling better. Patient states symptoms have improved. assumed care of patient from NAZIA Lomax. 04/24 14:18 Reassessment: attempted to call report to 4th floor. no nurse assigned to pt room at [facility] this time. 14:38 Reassessment: attempted to call report to 4th floor. [facility] supervisor [facility] gives permission to wait on report because they just received several admissions. Vital Signs: 04/23 15:55 BP 106 / 84; Pulse 95; Resp 22; Temp 98.6(TE); Pulse Ox 88% on R/A; Weight 64.86 kg; db Height 5 ft. 3 in. ; 18:00 BP 114 / 76; Pulse 83; Resp 24; Pulse Ox 89% on R/A; me1 20:00 BP 122 / 85; Pulse 89; Resp 22; Pulse Ox 92% on R/A; me1 22:00 BP 109 / 78; Pulse 74; Resp 22; Pulse Ox 90% on R/A; me1 22:00 BP 109 / 78; Pulse 74; Resp 20; Pulse Ox 90% ; vc1 15:55 Body Mass Index 25.33 (64.86 kg, 160.02 cm) db 15:55 DR. CASTRO IN ROOM FOR TRIAGE AND AWARE OF INITIAL O2 SAT db 22:00 refuses oxygen vc1 ED Course: 15:42 Patient arrived in ED. rg4 15:49 Aleksander Castro MD is Attending Physician. rn 15:56 Triage completed. db 15:57 Arm band placed on Patient placed in an exam room. db 16:03 Monie Carranza, NAZIA is Primary Nurse. me1 16:25 CBC with Diff Sent. me1 16:25 CMP Sent. me1 16:25 Lactate w/ 2H reflex if indic. Sent. me1 16:25 Protime (+inr) Sent. me1 16:25 Ptt, Activated Sent. me1 17:06 Chest Single View XRAY In Process Unspecified. EDMS 17:42 Eduin Bravo MD is Hospitalizing Provider. rn 18:40 Allergy band placed. Call light in reach. Side rails up X 1. Provided Education on: me1 POC. Verbalized understanding. . 18:40 No provider procedures requiring assistance completed. aa5 23:32 Patient admitted, IV remains in place. vc1 Administered Medications: 16:30 Drug: Ibuprofen PO 800 mg PO once Route: PO; rs5 17:01 Follow up: Response: No adverse reaction me1 16:30 Drug: MethylPrednisoLONE IVP 125 mg IVP once Route: IVP; Site: right antecubital; rs5 17:01 Follow up: Response: No adverse reaction me1 16:30 Drug: Levalbuterol Inhalation 1.25 mg Inhalation once Route: Inhalation; rs5 17:01 Follow up: Response: No adverse reaction me1 16:30 Drug: NS 0.9% IV 500 ml IV at bolus once Route: IV; Rate: bolus; Site: right rs5 antecubital; 22:06 Follow up: IV Status: Completed infusion me1 18:36 Drug: Rocephin IV 1 grams IV at calculated rate once; Given slow IV push per pharmacy me1 instructions Route: IV; Rate: calculated rate; Site: right antecubital; 18:36 Follow up: Response: No adverse reaction; IV Status: Completed infusion me1 18:36 Drug: Zithromax IVPB 500 mg IVPB once over 1 hrs; mix in 250 mL NS Route: IVPB; Infused me1 Over: 1 hrs; Site: right antecubital; 19:36 Follow up: Response: No adverse reaction; IV Status: Completed infusion me1 Medication: 18:40 VIS not applicable for this client. aa5 Outcome: 17:43 Decision to Hospitalize by Provider. rn 23:31 Admitted to ER Hold. Please see [facility] for further documentation. vc1 23:31 Condition: good 23:31 Instructed on the need for admit, 04/24 15:45 Patient left the ED. mb9 Signatures: Dispatcher [employer] EDMS Aleksander Castro MD MD rn Calderon, Audri, RN RN aa5 Adriana Turpin 4 Kathie Fenton RN RN vc1 Alexa Johnson RN RN kc6 Jessica Landrum RN RN Sanaz Avila RN RN mb9 Geronimo Woods RN RN rs5 Monie Carranza RN RN me1 Corrections: (The following items were deleted from the chart) 04/23 15:57 15:55 BP 106 / 84; Pulse 95bpm; Resp 22bpm; Pulse Ox 88% RA; Temp 98.6F Temporal; DRChi CASTRO IN ROOM FOR TRIAGE AND AWARE OF INITIAL O2 SAT; taj 19: 18:40 Allergy band placed. Call light in reach. Side rails up X 1. 5 ky1 19: 18:40 Provided Education on: POC. Verbalized understanding. . 5 ky1 : 18:40 General: Appears uncomfortable, well groomed, well developed, well nourished, me1 Behavior is calm, cooperative, appropriate for age, aa5 19: 18:40 Pain: Denies pain. 5 ky1 : 18:40 Neuro: Level of Consciousness is awake, alert, obeys commands, Oriented to ky1 person, place, time, situation, Appropriate for age aa5 : 18:40 Cardiovascular: Capillary refill < 3 seconds Patient's skin is warm and dry. [place] [id number] 19: 18:40 Respiratory: Reports shortness of breath on exertion cough that is persistent [facility] since one week ago but worse today. Airway is patent Respiratory effort is even, unlabored, Respiratory pattern is regular, symmetrical, [facility] : 18:40 Cardiovascular: Rhythm is sinus rhythm [place] [id number] 19: 18:40 [facility] Fall Risk Assessment (Adult) History of falling in the last 3 months, ky1 including since admission No falls in past 3 months (0 pts) Confusion or Disorientation No (0 pts) Intoxicated or Sedated No (0 pts) Impaired Gait No (0 pts) Mobility Assist Device Used No (0 pt) Altered Elimination No (0 pt) Score/Fall Risk Level 0 - 2 = Low Risk Maintained a safe environment, Provided non-skid footwear, Hourly rounding (assess needs \T\ fall precautionary measures) done, [facility] 19: 18:40 Abuse screen: Denies threats or abuse. [place] [id number] 19: 18:40 Nutritional screening: No deficits noted. [place] [id number] 19:07 18:40 Tuberculosis screening: No symptoms or risk factors identified. [place] [id number] 19:08 17:01 Response: No adverse reaction [place] [id number] 19:08 18:36 Zithromax IVPB 500 mg IVPB in right antecubital over 1 hrs [place] [id number] 19:08 18:36 Rocephin IV 1 grams IV at calculated rate in right antecubital [place] [id number] 19:08 18:36 Response: No adverse reaction; IV Status: Completed infusion [place] [id number] 19: 17:01 Response: No adverse reaction [place] [id number] 19:09 17:01 Response: No adverse reaction [place] [id number]
[2023-04-23] MEDS ORDERED: ACETAMINOPHEN 500 MG TAB PO PRN (18:12)
[2023-04-23] MEDS ORDERED: ONDANSETRON 4 MG/2 ML VIAL IV PRN (18:12)
[2023-04-23] MEDS ORDERED: IPRATROPIUM BROM 0.5MG/2.5ML NEB PRN (18:21)
[2023-04-23] MEDS ORDERED: ALBUTEROL 2.5 MG/3 ML NEB SOL NEB PRN (18:21)
--- NOTE | 2023-04-23 18:25 | P.HP ---
Certification for Inpatient Patient admitted to: Inpatient With expected LOS: >2 Midnights Patient will require the following post-hospital care: None Practitioner: I am a practitioner with admitting privileges, knowledge of patient current condition, hospital course, and medical plan of care. Services: Services provided to patient in accordance with Admission requirements found in Title 42 Section 412.3 of the Code of Federal Regulations Patient History Date of Service: 04/23/23 Reason for admission: SOB History of Present Illness: 57-year-old female with past medical history of cirrhosis liver, COPD, smoking came to ER with shortness of breath. Patient states that she has a history of COPD but has been stable but for the last 5 days she has been excessively short of breath even with minimal exertion. Associated with cough with mucoid expectoration. Denies any chest pain. No fever or chills. Associated with generalized weakness and fatigue. Patient denies any hemoptysis. Denies any sick contacts. She has been using inhalers for COPD but has not been helping with shortness of breath. She also complains of generalized body pain. She was seen in the clinic and was given nebulizer without much relief and was sent to ER for further management. Patient was assessed in the ER and was admitted for COPD exacerbation and right lower lobe pneumonia. Allergies codeine Allergy (Unverified 08/11/17 20:35) Unknown No Known Drug Allergies Allergy (Unverified 08/30/14 08:01) Unknown co Allergy (Uncoded 06/08/16 14:14) Unknown No Allergy (Uncoded 01/13/16 02:42) Unknown Home medications list reviewed: Yes - Past Medical/Surgical History Past Medical History: Reviewed- Non-Contributory -: COPD -: CIRRHOSIS liVER Past Surgical History: Reviewed- Non-Contributory -: Cholecystectomy -: tubal - Family History Family History: Reviewed- Non-Contributory - Social History Smoking Status: Current every day smoker Counseled patient to stop smoking for: more than 10 minutes Smoking therapy provided: Yes Patient receptive to therapy: No Review of Systems 10-point ROS is otherwise unremarkable General: Weakness, Malaise Eyes: Unremarkable ENT: Unremarkable Respiratory: Cough, Shortness of Breath, SOB with Excertion, Sputum Cardiovascular: Unremarkable Gastrointestinal: Unremarkable Genitourinary: Unremarkable Musculoskeletal: Other (Generalized body pain ) Integumentary: Unremarkable Neurological: Unremarkable Physical Examination - Physical Exam General: Alert, Oriented x3, Cooperative, Mild distress HEENT: Atraumatic, Normocephalic Neck: Supple, No Thyromegaly Respiratory: Diminished, Crackles/rales, Expiratory wheezes Cardiovascular: Regular rate/rhythm, Normal S1 S2, No gallops Capillary refill: <2 Seconds Gastrointestinal: Soft and benign, Non-distended, W/out hepatosplenomegaly Musculoskeletal: No clubbing, No swelling, No erythema Integumentary: No rashes, No tenderness/swelling Neurological: Normal speech, Normal strength at 5/5 x4 extr, Normal tone, Sensation intact, Cranial nerves 3-12 intact Lymphatics: No axilla or inguinal lymphadenopathy - Studies Laboratory Data (last 24 hrs) 04/23/23 04/23/23 04/23/23 16:19 16:19 16:19 WBC 6.60 Hgb 14.9 Hct 45.5 H Plt Count 136 L PT 11.8 INR 1.07 APTT 42.5 H Sodium 136 Potassium 3.9 BUN 20 H Creatinine 0.86 Glucose 115 H Total Bilirubin 0.5 AST 20 ALT 29 Alkaline Phosphatase 64 Microbiology Data (last 24 hrs): 04/23/23 16:22 Nasopharnyx Influenza Type A Antigen Screen - Final 04/23/23 16:22 Nasopharnyx Influenza Type B Antigen Screen - Final Imagings Data: X-ray chest consistent with right lower lobe pneumonia Assessment and Plan - Problems (Diagnosis) (1) Right lower lobe pneumonia Current Visit: Yes Status: Acute Plan: Right lower lobe pneumonia possibly due to Gram-positive cocci We will start on Rocephin and Zithromax Obtain cultures Monitor closely under telemetry We will change antibiotic as per sensitivity Qualifiers: Pneumonia type: due to Pneumococcus Qualified Code(s): J13 - Pneumonia due to Streptococcus pneumoniae (2) COPD exacerbation Current Visit: Yes Status: Acute Plan: COPD exacerbation We will start on bronchodilators We will hold back on steroids for now Oxygen supplementation as needed to keep saturation more than 92 History of COPD (3) History of cirrhosis Current Visit: Yes Status: Chronic Plan: Monitor closely thrombocytopenia noted Watch closely for any bleeding LFTs normal at this time (4) Smoking Current Visit: Yes Status: Chronic Plan: Discussed in detail with the patient regarding smoking cessation Counseled in detail Offered measures We will add on nicotine patch Patient states that she is down to 7 cigarettes a day instead of 1 pack a day We will motivate the patient to quit smoking Discharge Plan: Home - Advance Directives Does patient have a Living Will: No Does patient have a Durable POA for Healthcare: No - Code Status/Comfort Care Code Status: Full Code Time Spent Managing Pts Care (In Minutes): 45
[2023-04-23] MEDS: CEFTRIAXONE 1,000 MG in NA CHLORIDE 0.9% 50 ML IVPB SCH (18:30)
[2023-04-23] MEDS: AZITHROMYCIN IV 500 MG in NA CHLORIDE 0.9% 250 ML IVPB SCH (18:30)
[2023-04-23] MEDS ORDERED: AZITHROMYCIN 500 MG INJ IVPB ONE (18:45)
[2023-04-23] MEDS ORDERED: CEFTRIAXONE 1000 MG/VIAL ONE (18:45)
[2023-04-23] MEDS ORDERED: NA CHLORIDE 0.9% 250 ML ONE (18:46)
[2023-04-23] MEDS ORDERED: MUCINEX DM 12HR.SR TAB PO PRN (23:48)
[2023-04-23] MEDS: BENZONATATE 100 MG CAP PO SCH (23:50)
[2023-04-24] MEDS: KETOROLAC 30 MG/ML INJ IV PRN ×4 (00:10→18:07)
[2023-04-24] MEDS: ENOXAPARIN 40 MG/0.4 ML SQ SCH ×2 (00:10→09:00)
[2023-04-24] MEDS ORDERED: BENZONATATE 100 MG CAP PO ONE ×3 (00:12→14:43)
[2023-04-24] MEDS ORDERED: KETOROLAC 30 MG/ML INJ ONE ×3 (00:12→12:20)
[2023-04-24] MEDS ORDERED: ENOXAPARIN 40 MG/0.4 ML SQ ONE ×2 (00:13→09:26)
[2023-04-24 00:21] VITALS: BMI 25.3
[2023-04-24 02:55] LABS: Absolute Lymphocytes (CBC) 0.6 K/uL (0.7-4.9); Hematocrit 42.7 % (36.0-45.0); MCV 93.9 fL (80-100); MPV 8.9 fL (7.6-11.3); Platelets 134 thou/uL (152-406); RBC Red Blood Cell Count 4.55 M/uL (3.86-4.86)
[2023-04-24 03:08] LABS: Albumin 2.8 g/dL (3.4-5.0); Bilirubin Total 0.5 mg/dL (0.2-1.0); Potassium 3.9 mEq/L (3.5-5.1); Protein, Total 7.2 g/dL (6.4-8.2)
[2023-04-24] MEDS: AZITHROMYCIN IV 500 MG in NA CHLORIDE 0.9% 250 ML IVPB SCH (09:00)
[2023-04-24] MEDS: BENZONATATE 100 MG CAP PO SCH ×3 (09:00→19:53)
[2023-04-24] MEDS: CEFTRIAXONE 1,000 MG in NA CHLORIDE 0.9% 50 ML IVPB SCH (09:00)
[2023-04-24] MEDS: METHYLPREDNISOLONE 40 MG INJ IV SCH ×2 (09:00→16:25)
[2023-04-24] MEDS ORDERED: NA CHLORIDE 0.9% 250 ML ONE (09:25)
[2023-04-24] MEDS ORDERED: AZITHROMYCIN 500 MG INJ IVPB ONE (09:25)
[2023-04-24] MEDS ORDERED: METHYLPREDNISOLONE 40 MG INJ ONE (09:25)
[2023-04-24] MEDS ORDERED: CEFTRIAXONE 1000 MG/VIAL ONE (09:25)
[2023-04-24 12:26] LABS: Specific Gravity > 1.030 (1.005-1.030); Urine Bacteria <20 /HPF (<20); Urine Bilirubin NEGATIVE (Negative); Urine Blood Negative (Negative); Urine Clarity Clear (Clear); Urine Color Yellow (Yellow); Urine Glucose NEGATIVE (Negative); Urine Mucus Slight /HPF (None Seen); Urine Protein 1+ (Negative); Urine RBC <5 /HPF (None Seen); Urine Urobilinogen 1+ (Normal)
--- NOTE | 2023-04-24 12:37 | P.PN ---
Subjective Date of Service: 04/24/23 Chief Complaint: SOB Pt is resting comfortably in bed. Pt is complaining of pleuritic chest wall pain but denies any fever or SOB. Currently getting iv rocephin and azithromycin. No other complaints. Review of Systems General: Unremarkable Eyes: Unremarkable ENT: Unremarkable Respiratory: Pleuritic Pain Cardiovascular: Unremarkable Genitourinary: Unremarkable Musculoskeletal: Unremarkable Neurological: Unremarkable Lymphatics: Unremarkable Physical Examination - Vital Signs Temperature: 97.9 F Blood Pressure: 138/83 Pulse: 87 Respirations: 19 Pulse Ox (%): 93 - Physical Exam General: Alert, In no apparent distress, Oriented x3, Cooperative HEENT: Atraumatic, Normocephalic, PERRLA Neck: Supple, 2+ carotid pulse no bruit, No LAD Respiratory: Clear to auscultation bilaterally, Normal air movement Cardiovascular: No edema, Normal pulses, Regular rate/rhythm, Normal S1 S2 Capillary refill: <2 Seconds Gastrointestinal: Normal bowel sounds, Soft and benign, Non-distended Musculoskeletal: No clubbing, No swelling Integumentary: No rashes, No breakdown Neurological: Normal gait, Normal speech, Normal strength at 5/5 x4 extr Lymphatics: No axilla or inguinal lymphadenopathy - Studies Laboratory Data (last 24 hrs) 04/23/23 04/23/23 04/23/23 16:19 16:19 16:19 WBC 6.60 Hgb 14.9 Hct 45.5 H Plt Count 136 L PT 11.8 INR 1.07 APTT 42.5 H Sodium 136 Potassium 3.9 BUN 20 H Creatinine 0.86 Glucose 115 H Total Bilirubin 0.5 AST 20 ALT 29 Alkaline Phosphatase 64 Microbiology Data (last 24 hrs): 04/23/23 16:22 Nasopharnyx Influenza Type A Antigen Screen - Final 04/23/23 16:22 Nasopharnyx Influenza Type B Antigen Screen - Final Assessment And Plan - Plan RLL pneumonia: Will continue rocephin and azithro. Follow up blood cx. Hx of COPD: Stable. Not in exacerbation. Will continue prn duoneb and oxygen. Hx of Liver cirrhosis: Pt was advised to avoid alcohol and other nephrotoxins. Tobacco abuse: pt was advised to quit smoking. DVT ppx: SCD Code: full Discharge Plan: Home Plan to discharge in: 24 Hours - Code Status/Comfort Care Code Status Assessed: Yes Code Status: Full Code
[2023-04-24] MEDS ORDERED: TRAZODONE 50 MG TABLET PO PRN (19:34)
[2023-04-24] MEDS ORDERED: ZOLPIDEM TARTRATE 10 MG TABLET PO PRN (19:34)
[2023-04-25] MEDS: METHYLPREDNISOLONE 40 MG INJ IV SCH ×2 (00:20→07:31)
[2023-04-25] MEDS: BENZONATATE 100 MG CAP PO SCH (07:30)
[2023-04-25] MEDS: ENOXAPARIN 40 MG/0.4 ML SQ SCH (07:31)
[2023-04-25] MEDS: CEFTRIAXONE 1,000 MG in NA CHLORIDE 0.9% 50 ML IVPB SCH (07:31)
[2023-04-25] MEDS: AZITHROMYCIN IV 500 MG in NA CHLORIDE 0.9% 250 ML IVPB SCH (07:31)
[2023-04-25 07:40] LABS: Absolute Lymphocytes (CBC) 1.3 K/uL (0.7-4.9); Hematocrit 45.6 % (36.0-45.0); Lymphocytes % 13.9 % (15.3-44.8); MCV 92.7 fL (80-100); MPV 9.1 fL (7.6-11.3); Platelets 202 thou/uL (152-406); RBC Red Blood Cell Count 4.92 M/uL (3.86-4.86)
[2023-04-25] MEDS: KETOROLAC 30 MG/ML INJ IV PRN (07:47)
[2023-04-25 07:59] LABS: Potassium 4.1 mEq/L (3.5-5.1)
--- NOTE | 2023-04-25 12:34 | P.DS ---
Admission Date: 04/23/23 Discharge Date: 04/25/23 Disposition: ROUTINE DISCHARGE Discharge Condition: GOOD Reason for Admission: SOB Brief History of Present Illness: 57-year-old female with past medical history of cirrhosis liver, COPD, smoking came to ER with shortness of breath. Patient states that she has a history of COPD but has been stable but for the last 5 days she has been excessively short of breath even with minimal exertion. Associated with cough with mucoid expectoration. Denies any chest pain. No fever or chills. Associated with generalized weakness and fatigue. Patient denies any hemoptysis. Denies any sick contacts. She has been using inhalers for COPD but has not been helping with shortness of breath. She also complains of generalized body pain. She was seen in the clinic and was given nebulizer without much relief and was sent to ER for further management. Patient was assessed in the ER and was admitted for COPD exacerbation and right lower lobe pneumonia. Hospital Course: Pt is a 57-year-old female with past medical history of cirrhosis liver, COPD, and tobacco abuse who presented with shortness of breath. The SOB started 5 days before this admission. It was associated with cough with mucoid expectoration, generalized weakness and fatigue. Patient denied any hemoptysis or sick contacts. Pt was admitted for treatment of COPD exacerbation and right lower lobe pneumonia. We gave rocephin and azithromycin and steroid. Pt's symptoms improved and she requested to be discharged. We dicharged her with prednisone taper, cefdinir and azithromycin. She was in NAD prior to discharge. Vital Signs/Physical Exam: Temp Pulse Resp BP Pulse Ox 97.4 F 74 18 133/74 95 04/25/23 08:00 04/25/23 08:00 04/25/23 08:00 04/25/23 08:00 04/25/23 08:00 Laboratory Data at Discharge: WBC 9.50 thou/uL (4.3-10.9) 04/25/23 07:10 Hgb 15.4 g/dL (12.0-15.0) H 04/25/23 07:10 Hct 45.6 % (36.0-45.0) H 04/25/23 07:10 Plt Count 202 thou/uL (152-406) 04/25/23 07:10 PT 11.8 SECONDS (9.5-12.5) 04/23/23 16:19 INR 1.07 04/23/23 16:19 APTT 42.5 SECONDS (24.3-36.9) H 04/23/23 16:19 Sodium 140 mEq/L (136-145) 04/25/23 07:10 Potassium 4.1 mEq/L (3.5-5.1) 04/25/23 07:10 BUN 34 mg/dL (7-18) H 04/25/23 07:10 Creatinine 1.04 mg/dL (0.55-1.02) H 04/25/23 07:10 Glucose 130 mg/dL (74-106) H 04/25/23 07:10 Total Bilirubin 0.5 mg/dL (0.2-1.0) 04/24/23 02:05 AST 17 U/L (15-37) 04/24/23 02:05 ALT 27 U/L (13-56) 04/24/23 02:05 Alkaline Phosphatase 58 U/L (45-117) 04/24/23 02:05 Home Medications: Amlodipine [Norvasc*] 10 mg PO DAILY 04/24/23 Brexpiprazole [Rexulti] 1 mg PO DAILY 04/24/23 Ipratropium/Albuterol Sulfate [Combivent Respimat 20-100 Mcg] 1 puff IH PRN PRN 04/24/23 Levothyroxine [Synthroid*] 75 mcg PO [id number] 04/24/23 Pregabalin [Lyrica] 1 cap PO DAILY 04/24/23 Trazodone [Desyrel*] 50 mg PO BEDTIME PRN PRN 04/24/23 Zolpidem Tartrate [Ambien*] 10 mg PO BEDTIME PRN PRN 04/24/23 Azithromycin Tab [Zithromax*] 500 mg PO DAILY 5 Days #5 tab 04/25/23 Cefdinir [Cefdinir*] 300 mg PO BID 5 Days #10 cap 04/25/23 Prednisone [Sterapred Ds] 40 mg PO DAILY 5 Days #5 04/25/23 New Medications: Cefdinir [Cefdinir*] 300 mg PO BID 5 Days #10 cap Prednisone [Sterapred Ds] 40 mg PO DAILY 5 Days #5 Azithromycin Tab [Zithromax*] 500 mg PO DAILY 5 Days #5 tab Physician Discharge Instructions: Continue ad preethi activity as tolerated. Take prednisone, cefdinir and azithromycin as prescribed. Continue other home meds. Follow up with PCP in 1 week Diet: AHA Activity: Ad preethi Followup: Mihaela Brody NP [Primary Care Provider] -
[2023-04-25 12:51] VITALS: BP 142/89; TEMP 97.9
[2023-04-25] MEDS ORDERED: NA CHLORIDE 0.9% 500 ML IV ONE (12:55)
[2023-04-25 14:05] VITALS: O2SAT 92
--- NOTE | 2023-04-29 14:07 | EKG ---
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
== END 2023-04-25 14:15 | disposition home or self-care (01) | DRG 190 ==
LOC: ER 15:41 → ERHOLD 18:18 → 4TH 04-24 15:41
PROVIDERS: ADMIT Family Medicine; ATTEND Hospitalist
DX: J44.1 Chronic obstructive pulmonary disease with (acute) exacerbation (principal); J13 Pneumonia due to Streptococcus pneumoniae; J44.0 Chronic obstructive pulmonary disease with (acute) lower respiratory infection; I10 Essential (primary) hypertension; D69.6 Thrombocytopenia, unspecified; K74.60 Unspecified cirrhosis of liver; M79.7 Fibromyalgia; F17.210 Nicotine dependence, cigarettes, uncomplicated; Z88.5 Allergy status to narcotic agent; Z11.52 Encounter for screening for COVID-19; Z79.52 Long term (current) use of systemic steroids; Z79.890 Hormone replacement therapy; Z79.899 Other long term (current) drug therapy
CPT/HCPCS: 36415; 71045; 80048; 80053; 81001; 83605; 85025; 85610; 85730; 87040; 87070; 87077; 87186; 87205; 87804; 87811; 93005; 94760; 96361; 96365; 96375; 99285; J0696; J1650; J2920; J2930; J7040; J7050; J7614

== ENCOUNTER 2024-08-29 09:36 | Emergency (ER) | payer OTHER ==
--- OUTSIDE RECORDS SUMMARY | 2024-08-29 09:41 | XMS REPORT | Continuity of Care Document ---
Author Name Unknown Address [address] [facility] [place] [address] [facility] [place] Address [address] [facility] [place] [address] Care Team Providers Care Fire Protection Inspector Name Role Phone Aron Malagon Primary Care Physician + [phone] Antonio Carrillo MD Attending Clinician [phone] Aron Malagon Attending Clinician [phone] ARON SIU Attending Clinician Unavailable Doctor Unassigned, Valinda Attending Clinician U Dana Marcelo Attending Clinician + [phone] DURGA LORA Attending Clinician Unavailab DURGA Hameed Attending Clinician Unavailab DANA Pillai Attending Clinician Unavailable FABIENNE OLSON Attending Clinician Unavail able FABIENNE OLSON Attending Clinician Unavail able SIM SLADE Attending Clinician Unavailable Marimar Knight Attending Clinician + [phone] MARIMAR ABDULLAHI Attending Clinician Unavailable Sim Slade MD Attending Clinician [phone] Marti Hare Attending Clinician UnaAron Reyna Attending Clinician [phone] Lab, Ang - Db Attending Clinician Unavailable NAA BOJORQUEZ Attending Clinician Unav ailable Ashok DPMNaa Attending Clinician JANKI LI Attending Clinician Unavailable Janki Li NP Attending Clinician [phone] Doctor Unassigned, Valinda Attending Clinician U navailable ROME, ANA S Attending Clinician Unavailable Rome PAC, Ana S Attending Clinician [phone] Hong Linn MD Attending Clinician [phone] Olu MANDUJANO, Vee Pacheco Attending Clinician Unavailab HONG Jackson Attending Clinician Unavailable GISELA GALINDO Attending Clinician Unavailable WINDY PALOMARES Attending Clinician Unavailable DEVEN GIMENEZ Attending Clinician Unavailable HONG LINN Admitting Clinician Unavailable Hong Linn MD Admitting Clinician [phone] EMERGENCY ROOM, EMERGENCY Admitting Clinician Un available Payers Payer Name Policy Type Policy Number Effective Date Expirati on Date Source [facility] DUAL COMP HMO D SNP [id number] 2022 00:00:00 Problems Condition Name Condition Details Condition Category Status Onset Date Resolution Date Last Treatment Date Treating Clinician Comments Source Anxiety with depression Anxiety with depression Disease Active 2023-05 00:00: 00 [facility] Palpitatio ns Palpitatio ns Disease Active 01-05 00:00: 00 [facility] Elevated brain natriureti c peptide (BNP) level Elevated brain natriureti c peptide (BNP) level Disease Active 01-05 00:00: 00 [facility] Dementia with anxiety, unspecifie d dementia severity, unspecifie d dementia type Dementia with anxiety, unspecifie d dementia severity, unspecifie d dementia type Disease Active 01-04 00:00: 00 [facility] Bipolar 1 disorder Bipolar 1 disorder Disease Active 12-04 00:00: 00 [facility] Acquired hypothyroi dism Acquired hypothyroi dism Disease Active 12-04 00:00: 00 [facility] Hypoxia Hypoxia Disease Active 1-20 00:00: 00 [facility] Chest pain Chest pain Disease Active 12-19 00:00: 00 [facility] Chronic obstructiv e pulmonary disease, unspecifie d COPD type Chronic obstructiv e pulmonary disease, unspecifie d COPD type Disease Active 12-19 00:00: 00 [facility] COPD exacerbati on COPD exacerbati on Disease Active 12-19 00:00: 00 [facility] Cigarette smoker Cigarette smoker Disease Active 12-19 00:00: 00 [facility] Essential hypertensi on Essential hypertensi on Disease Active 12-19 00:00: 00 [facility] Family history of early CAD Family history of early CAD Disease Active 12-19 00:00: 00 [facility] Allergies, Adverse Reactions, Alerts Allergy Name Allergy Type Status Severity Reaction(s) Onset Date Inactive Date Treating Clinician Comments Source NO KNOWN ALLERGIE S Drug Class Active [facility] Family History Family Member Diagnosis Comments Start Date Stop Date Sourc e Natural father Coronary Heart Disease [facility] Social History Social Habit Start Date Stop Date Quantity Comments Source [facility] of tobacco use Cigarette Smoker [facility] Alcoholic beverage intake 2024-03-05 00:00:00 2024-03-05 00:00:00 Ex-drinker (finding) [facility] History of Social function 2023-12-05 00:00:00 2023-12-05 00:00:00 [facility] Cigarettes smoked current (pack per day) - Reported 2023-10-09 00:00:00 2023-10-09 00:00:00 [facility] Cigarette pack-years 2023-10-09 00:00:00 2023-10-09 00:00:00 [facility] Tobacco use and exposure 2023-10-09 00:00:00 2023-10-09 00:00:00 Smokeless tobacco non-user [facility] Alcohol intake 2022-07-15 00:00:00 2022-07-15 00:00:00 Ex-drinker (finding) [facility] Exposure to SARS-CoV-2 (event) 2022-07-04 00:00:00 2022-07-14 22:58:00 Not sure [facility] Sex assigned at 1965 00:00:00 1965 00:00:00 [facility] Smoking Status Start Date Stop Date Source Smokes tobacco daily 2023-10-09 00:00:00 [facility] Medications Ordered Medication Name Filled Medication Name Start Date Stop Date Current Medication? Ordering Clinician Indication Dosage Frequency Signature (SIG) Comments Components Source ANORO ELLIPTA 62.5-25 mcg/actuati on inhalation disk 06-22 00:00: 00 Yes [id number] 1{puff} INHALE 1 PUFF BY MOUTH DAILY [facility] COMBIVENT RESPIMAT 20-100 mcg/actuati on inhaler 06-22 00:00: 00 Yes [id number] 1{puff} INHALE 1 PUFF BY MOUTH FOUR TIMES DAILY [facility] LEVOTHYROXI NE 75 mcg tablet 06-11 00:00: 00 Yes [id number] 75ug TAKE 1 TABLET BY MOUTH EVERY MORNING [facility] AMLODIPINE 5 mg tablet 06-11 00:00: 00 Yes [id number] 5mg TAKE 1 TABLET BY MOUTH IN THE MORNING [facility] COMBIVENT RESPIMAT 20-100 mcg/actuati on inhaler 2023-05 00:00: 00 06-22 00:00 :00 No [id number] 1{puff} INHALE 1 PUFF BY MOUTH FOUR TIMES DAILY [facility] umeclidiniu m-vilantero L (ANORO ELLIPTA) 62.5-25 mcg/actuati on inhalation disk 2023-05 00:00: 00 06-22 00:00 :00 No [id number] 1{puff} INHALE 1 PUFF BY MOUTH DAILY [facility] Nebulizer & Compressor For Neb Karolina 2023-05 0- 00:00: 00 Yes [id number] Use as directed [facility] albuterol 2.5 mg /3 mL (0.083 %) nebulizer solution 2023-05 0 00:00: 00 Yes [id number] 2.5mg Inhale 3 mL every 4 (four) hours as needed for Wheezing or Shortness of Breath. [facility] varenicline 0.5 mg (11)- 1 mg (42) tablet 2023-05 0-18 00:00: 00 Yes [id number] Take one 0.5mg tab by mouth once daily for 3 days, then one 0.5mg tab twice daily for 4 days, then one 1mg tab twice daily. [facility] busPIRone 10 mg tablet 2023-05 00:00: 00 Yes [id number] 10mg Take 1 tablet by mouth 2 (two) times daily as needed (anxiety). [facility] Nebulizer & Compressor For Neb Karolina 2023-05 00:00: 00 03-12 00:00 :00 No [id number] Use as directed [facility] albuterol 2.5 mg /3 mL (0.083 %) nebulizer solution 2023-05 00:00: 00 03-12 00:00 :00 No [id number] 2.5mg Inhale 3 mL every 4 (four) hours as needed for Wheezing or Shortness of Breath. [facility] albuterol-i pratropium 20-100 mcg/actuati on inhaler 2023-05 0-09 00:00: 00 03-23 00:00 :00 No [id number] 1{puff} Inhale 1 Puff 4 (four) times daily. [facility] PROPRANOLOL 10 mg tablet 2023-05 0-08 00:00: 00 03-05 00:00 :00 No [id number] TAKE 1 TABLET BY MOUTH IN THE MORNING AT NOON AND IN THE EVENING [facility] brexpiprazo le (REXULTI) 2 mg Tab 02-02 00:00: 00 Yes [id number] 1{tbl} Take 1 tablet by mouth in the morning. [facility] propranoloL 10 mg tablet 02-02 00:00: 00 02-23 00:00 :00 No [id number] 10mg Take 1 tablet by mouth in the morning and 1 tablet at noon and 1 tablet in the evening. [facility] DULoxetine 60 mg capsule 01-08 15:53: 01 Yes 60mg Take 1 capsule by mouth in the morning. [facility] pregabalin 150 mg capsule 01-08 15:53: 01 Yes 150mg Take 1 capsule by mouth in the morning and 1 capsule in the evening. [facility] mirtazapine 7.5 mg tablet 01-08 15:53: 01 03-05 00:00 :00 No 7.5mg Take 1 tablet by mouth at bedtime. [facility] brexpiprazo le (REXULTI) 2 mg Tab 01-08 00:00: 00 Yes [id number] 2mg Take 2 mg by mouth in the morning. Follow-up with psychiatry for management . [facility] zolpidem (AMBIEN) 10 mg tablet 01-05 11:29: 31 Yes 10mg Take 1 tablet by mouth at bedtime as needed for Insomnia. [facility] christopher Garcia (ANORO ELLIPTA) 62.5-25 mcg/actuati on inhalation disk 01-04 00:00: 00 03-23 00:00 :00 No [id number] 1{puff} Inhale 1 Puff in the morning. [facility] albuterol-i pratropium 20-100 mcg/actuati on inhaler 01-04 00:00: 00 02-24 00:00 :00 No [id number] 1{puff} Inhale 1 Puff 4 (four) times daily. [facility] REXULTI 2 mg Tab 12-31 00:00: 00 02-02 00:00 :00 No 1{tbl} Take 1 tablet by mouth in the morning. [facility] levothyroxi ne 75 mcg tablet 12-04 10:19: 43 12-04 00:00 :00 No 75ug Take 75 mcg by mouth every morning. [facility] albuterol 90 mcg/actuati on inhaler 12-04 00:00: 00 Yes [id number] 2{puff} Inhale 2 Puffs every 6 (six) hours as needed for Wheezing or Shortness of Breath. [facility] amLODIPine 5 mg tablet 12-04 00:00: 00 06-11 00:00 :00 No [id number] 5mg Take 1 tablet by mouth in the morning. [facility] levothyroxi ne 75 mcg tablet 12-04 00:00: 00 06-11 00:00 :00 No [id number] 75ug Take 1 tablet by mouth every morning. [facility] christopher Garcia (ANORO ELLIPTA) 62.5-25 mcg/actuati on inhalation disk 12-04 00:00: 00 01-04 00:00 :00 No [id number] 1{puff} Inhale 1 Puff in the morning. [facility] clindamycin 300 mg capsule 10-01 00:00: 00 10-12 04:59 :00 No [id number] 300mg Take 1 capsule by mouth 4 (four) times daily for 10 days. [facility] flurbiprofe n 100 mg tablet 10-01 00:00: 00 10-12 04:59 :00 No [id number] 100mg Take 1 tablet by mouth in the morning and 1 tablet in the evening. Do all this for 10 days. [facility] ANORO ELLIPTA 62.5-25 mcg/actuati on inhalation disk 09-29 00:00: 00 12-04 00:00 :00 No 1{puff} Inhale 1 Puff in the morning. [facility] ARIPiprazol e 5 mg tablet 06-10 04:34: 04 01-08 00:00 :00 No 5mg Take 1 tablet by mouth in the morning. [facility] traZODone 50 mg tablet 06-10 04:34: 01-08 00:00 :00 No 50mg Take 1 tablet by mouth at bedtime. [facility] clonazePAM 1 mg tablet 06-08 16:34: 26 Yes 1mg Take 1 mg by mouth 3 (three) times daily. [facility] levothyroxi ne 75 mcg tablet 06-08 16:34: Yes 75ug Take 75 mcg by mouth every morning. [facility] clonazePAM 1 mg tablet 06-08 16:34: 03-05 00:00 :00 No 1.5mg Take 1.5 tablets by mouth in the morning and 1.5 tablets at noon and 1.5 tablets in the evening. [facility] DULoxetine 30 mg capsule 06-08:34: 01-08 00:00 :00 No 30mg Take 1 capsule by mouth in the morning. [facility] predniSONE 50 mg tablet 06-08 00:00: 00 10-01 00:00 :00 No [id number] 50mg Take 1 tablet by mouth daily. [facility] albuterol-i pratropium 20-100 mcg/actuati on inhaler 06-08 00:00: 00 10-01 00:00 :00 No [id number] 1{puff} Inhale 1 Puff every 6 (six) hours. [facility] amLODIPine 5 mg tablet -05 00:00: 00 12-04 00:00 :00 No 5mg Take 1 tablet by mouth daily. [facility] Immunizations Ordered Immunization Name Filled Immunization Name Date Status Comments Source SARS-COV-2 COVID-19 PFIZER VACCINE 2020-08-30 00:00:00 Completed [facility] SARS-COV-2 COVID-19 PFIZER VACCINE 2020-08-30 00:00:00 Completed [facility] SARS-COV-2 COVID-19 PFIZER VACCINE 2020-08-30 00:00:00 Completed [facility] SARS-COV-2 COVID-19 PFIZER VACCINE 2020-08-30 00:00:00 Completed [facility] SARS-COV-2 COVID-19 PFIZER VACCINE 2020-08-30 00:00:00 Completed [facility] SARS-COV-2 COVID-19 PFIZER VACCINE 2020-08-30 00:00:00 Completed [facility] SARS-COV-2 COVID-19 PFIZER VACCINE 2020-08-30 00:00:00 Completed [facility] SARS-COV-2 COVID-19 PFIZER VACCINE Unknown Completed [facility] SARS-COV-2 COVID-19 PFIZER VACCINE Unknown Completed [facility] SARS-COV-2 COVID-19 PFIZER VACCINE Unknown Completed [facility] SARS-COV-2 COVID-19 PFIZER VACCINE Unknown Completed [facility] SARS-COV-2 COVID-19 PFIZER VACCINE Unknown Completed [facility] SARS-COV-2 COVID-19 PFIZER VACCINE Unknown Completed [facility] SARS-COV-2 COVID-19 PFIZER VACCINE Unknown Completed [facility] SARS-COV-2 COVID-19 PFIZER VACCINE Unknown Completed [facility] SARS-COV-2 COVID-19 PFIZER VACCINE Unknown Completed [facility] SARS-COV-2 COVID-19 PFIZER VACCINE Unknown Completed [facility] SARS-COV-2 COVID-19 PFIZER VACCINE Unknown Completed [facility] SARS-COV-2 COVID-19 PFIZER VACCINE Unknown Completed [facility] SARS-COV-2 COVID-19 PFIZER VACCINE Unknown Completed [facility] SARS-COV-2 COVID-19 PFIZER VACCINE Unknown Completed [facility] SARS-COV-2 COVID-19 PFIZER VACCINE Unknown Completed [facility] SARS-COV-2 COVID-19 PFIZER VACCINE Unknown Completed [facility] Vital Signs Vital Name Observation Time Observation Value Comments S ource Systolic blood pressure 2024-03-05 18:51:00 133 mm[Hg] [facility] Diastolic blood pressure 2024-03-05 18:51:00 84 mm[Hg] [facility] Heart rate 2024-03-05 18:50:00 73 /min [facility] Body temperature 2024-03-05 18:50:00 36.56 Erika [facility] Respiratory rate 2024-03-05 18:50:00 18 /min [facility] Body height 2024-03-05 18:50:00 [facility] Body weight 2024-03-05 18:50:[address] [facility] BMI 2024-03-05 18:50:00 22.27 kg/m2 [facility] Oxygen saturation in Arterial blood by Pulse oximetry 2024-03-05 18:50:00 90 /min [facility] Systolic blood pressure 2024-02-03 16:15:00 134 mm[Hg] [facility] Diastolic blood pressure 2024-02-03 16:15:00 86 mm[Hg] [facility] Heart rate 2024-02-03 16:15:00 93 /min Unive [facility] Respiratory rate 2024-02-03 16:15:00 18 /min [facility] Body height 2024-02-03 16:15:00 160 [facility] Body weight 2024-02-03 16:15:00 59.194 kg [facility] BMI 2024-02-03 16:15:00 23.12 kg/m2 [facility] Oxygen saturation in Arterial blood by Pulse oximetry 2024-02-03 16:15:00 90 /min [facility] Systolic blood pressure 2024-01-09 20:24:00 134 mm[Hg] [facility] Diastolic blood pressure 2024-01-09 20:24:00 86 mm[Hg] [facility] Heart rate 2024-01-09 20:24:00 86 /min Unive [facility] Body height 2024-01-09 20:24:00 160 [facility] Body weight 2024-01-09 20:24:00 60.328 kg [facility] BMI 2024-01-09 20:24:00 23.56 kg/m2 [facility] Systolic blood pressure 2024-01-06 16:30:00 109 mm[Hg] [facility] Diastolic blood pressure 2024-01-06 16:30:00 75 mm[Hg] [facility] Respiratory rate 2024-01-06 16:30:00 18 /min [facility] Body height 2024-01-06 16:30:00 160 [facility] Body weight 2024-01-06 16:30:00 59.33 kg [facility] BMI 2024-01-06 16:30:00 23.17 kg/m2 [facility] Oxygen saturation in Arterial blood by Pulse oximetry 2024-01-06 16:30:00 91 /min [facility] Systolic blood pressure 2024-01-05 19:50:00 128 mm[Hg] [facility] Diastolic blood pressure 2024-01-05 19:50:00 87 mm[Hg] [facility] Heart rate 2024-01-05 19:50:00 95 /min Unive [facility] Body temperature 2024-01-05 19:50:00 36.78 Erika [facility] Respiratory rate 2024-01-05 19:50:00 18 /min [facility] Body height 2024-01-05 19:50:00 160 [facility] Body weight 2024-01-05 19:50:00 59.33 kg [facility] BMI 2024-01-05 19:50:00 23.17 kg/m2 [facility] Oxygen saturation in Arterial blood by Pulse oximetry 2024-01-05 19:50:00 88 /min [facility] Systolic blood pressure 2023-12-05 15:03:00 166 mm[Hg] [facility] Diastolic blood pressure 2023-12-05 15:03:00 118 mm[Hg] [facility] Heart rate 2023-12-05 15:02:00 91 [facility] Body temperature 2023-12-05 15:02:00 36.83 Erika [facility] Respiratory rate 2023-12-05 15:02:00 18 /min [facility] Body height 2023-12-05 15:02:00 160 cm [facility] Body weight 2023-12-05 15:02:00 59.104 kg [facility] BMI 2023-12-05 15:02:00 23.08 kg/m2 [facility] Oxygen saturation in Arterial blood by Pulse oximetry 2023-12-05 15:02:00 90 /min [facility] Systolic blood pressure 2023-10-09 15:14:00 112 mm[Hg] [facility] Diastolic blood pressure 2023-10-09 15:14:00 71 mm[Hg] [facility] Heart rate 2023-10-09 15:14:00 94 /min [facility] Body temperature 2023-10-09 15:14:00 35.61 Erika [facility] Body height 2023-10-09 15:14:00 160 [facility] Body weight 2023-10-09 15:14:00 64.411 kg [facility] BMI 2023-10-09 15:14:00 25.15 kg/m2 [facility] Systolic blood pressure 2023-10-02 20:13:00 129 mm[Hg] [facility] Diastolic blood pressure 2023-10-02 20:13:00 86 mm[Hg] [facility] Heart rate 2023-10-02 20:13:00 103 /min [facility] Body temperature 2023-10-02 20:13:00 37.28 Erika [facility] Respiratory rate 2023-10-02 20:13:00 20 /min [facility] Body height 2023-10-02 20:13:00 160 cm [facility] Body weight 2023-10-02 20:13:00 58.968 kg [facility] BMI 2023-10-02 20:13:00 23.03 kg/m2 [facility] Oxygen saturation in Arterial blood by Pulse oximetry 2023-10-02 20:13:00 94 /min [facility] Systolic blood pressure 2022-07-15 06:00:00 132 mm[Hg] [facility] Diastolic blood pressure 2022-07-15 06:00:00 96 mm[Hg] [facility] Heart rate 2022-07-15 06:00:00 81 /min Unive [facility] Respiratory rate 2022-07-15 06:00:00 15 /min [facility] Oxygen saturation in Arterial blood by Pulse oximetry 2022-07-15 06:00:00 93 /min [facility] Body temperature 2022-07-15 05:04:00 37.28 Erika [facility] Body height 2022-07-15 05:04:00 160 [facility] Body weight 2022-07-15 05:04:00 58.968 kg [facility] BMI 2022-07-15 05:04:00 23.03 kg/m2 [facility] Systolic blood pressure 2024-03-05 18:51:00 133 mm[Hg] [facility] Diastolic blood pressure 2024-03-05 18:51:00 84 mm[Hg] [facility] Heart rate 2024-03-05 18:50:00 73 /min Unive [facility] Body temperature 2024-03-05 18:50:00 36.56 Erika [facility] Respiratory rate 2024-03-05 18:50:00 18 /min [facility] Body height 2024-03-05 18:50:00 160 cm [facility] Body weight 2024-03-05 18:50:00 57.017 kg [facility] BMI 2024-03-05 18:50:00 22.27 kg/m2 [facility] Oxygen saturation in Arterial blood by Pulse oximetry 2024-03-05 18:50:00 90 /min [facility] Procedures Procedure Date / Time Performed Performing Clinicia n Source CBC WITH DIFF 2023-12-05 15:59:00 Aron Siu [facility] REFERRAL- REQUEST/RESPONSE 2023-05-08 06:01:00 Doctor Unassigned, Valinda [facility] EXTERNAL PROVIDER - ADC REFERRAL 2021-10-22 05:01:00 Doctor Unassigned, Valinda [facility] EXTERNAL PROVIDER RECORDS 2021-06-25 06:01:00 Doctor Unassigned, Valinda [facility] CT THORAX WO CONTRAST 2021-06-08 15:46:26 Fariba Linn [facility] Encounters Start Date/Time End Date/Time Encounter Type Admission Type Attending [facility] Care Department Encounter ID Source 2024-06-18 00:00:00 2024-06-22 13:20:25 Refill Antonio Carrillo [id number] [facility] 2024-06-10 00:00:00 2024-06-11 07:40:23 Refill Aron Siu 1.2.840.1 [id number] [id number] [facility] 2024-05-31 00:00:00 2024-05-31 10:01:04 Letter (Out) 1.2.840.1 [id number] [id number] .[id number] [facility] 2024-05-26 00:00:00 2024-05-26 14:06:11 Telephone Aron Siu 1.2.840.1 [id number] 3.104.2.7 .[id number] .8 [id number] [facility] 2024-04-05 00:00:00 2024-04-05 14:55:49 Telephone Aron Siu 1.2.840.1 [id number] 3.104.2.7 [id number] [facility] 2024-03-22 00:00:00 2024-03-23 16:40:58 Refill Aron Siu [facility] [id number] 350.1.13.10 [id number] [id number] [facility] 2024-02-06 00:00:00 2024-03-13 18:26:05 Patient Secure Msg Doctor Unassigned, Valinda Doctor Unassigned, Valinda [facility] [id number] 350.1.13.10 4.2.7.2.686 [id number] [facility] 2024-03-10 00:00:00 2024-03-11 15:52:43 Telephone NereidaAron [facility] [id number] 350.1.13.10 4.2.7.2.686 [id number] [facility] 2024-03-05 13:30:00 2024-03-05 14:13:57 Outpatient R SALBADOR ARON [facility] [id number] [facility] 2024-03-05 13:30:00 2024-03-05 14:13:57 Office Visit SalbadorAron [facility] [id number] 350.1.13.10 4.2.7.2.686 [id number] [facility] 2024-02-25 00:00:00 2024-02-25 13:13:04 Telephone NereidaAron [facility] [id number] 350.1.13.10 4.2.7.2.686 [id number] [facility] 2024-02-24 00:00:00 2024-02-25 08:09:29 Telephone NereidaAron [facility] [id number] 350.1.13.10 4.2.7.2.686 [id number] [facility] 2024-02-24 00:00:00 2024-02-24 13:49:21 [facility] [facility] 1..840.114 350.1.13.10 4.2.7.2.686 [id number] [facility] 2024-02-23 15:00:00 2024-02-23 15:00:00 Outpatient R DURGA LORA SHIWAN [facility] [id number] [facility] 2024-01-06 00:00:00 2024-02-07 18:20:19 Patient Secure Msg Doctor Unassigned, Valinda Doctor Unassigned, Valinda [facility] 1..840.114 350.1.13.10 4.2.7.2.686 [id number] [facility] 2024-02-03 13:30:00 2024-02-03 13:30:00 Outpatient R DURGA LORA SHIWAN [facility] [id number] [facility] 2024-02-03 11:00:00 2024-02-03 11:52:50 Outpatient R TOMMIE DANA [facility] [id number] [facility] 2024-02-03 11:00:00 2024-02-03 11:52:50 [facility] 1.2.840.114 350.1.13.10 4.2.7.2.686 [id number] [facility] 2024-01-30 13:40:00 2024-01-30 13:40:00 Outpatient FABIENNE MURILLO HOWARD [facility] [id number] [facility] 2024-01-16 00:00:00 2024-01-27 16:40:38 Telephone Aron Siu [facility] 1.840.114 350.1.13.10 4.2.7.2.686 [id number] [facility] 2024-01-21 15:00:00 2024-01-21 15:00:00 Outpatient SIM REBOLLAR [facility] [id number] [facility] 2024-01-09 15:30:00 2024-01-09 16:00:00 Office Visit Marimar Abdullahi [facility] 1.840.114 350.1.13.10 4.2.7.2.686 [id number] [facility] 2024-01-09 15:30:00 2024-01-09 15:30:00 Outpatient R MARIMAR ABDULLAHI [facility] [id number] [facility] 2024-01-07 00:00:00 2024-01-08 19:38:02 Telephone Aron Siu [facility] 1.840.114 350.1.13.10 4.2.7.2.686 [id number] [facility] 2024-01-06 11:30:00 2024-01-06 12:01:14 Out[facility] [id number] [facility] 2024-01-06 11:30:00 2024-01-06 12:01:14 Office Visit Candelario Sladeammed [facility] RADHA [facility] 1.84.114 350.1.13.10 4.2.7.2.686 [id number] [facility] 2024-01-05 00:00:00 2024-01-05 16:25:26 Patient Outreach Marti Milan Jocelyn [facility] 1.840.114 350.1.13.10 4.2.7.2.686 [id number] [facility] 2024-01-05 14:30:00 2024-01-05 15:15:16 Outpatient R ARON SIU [facility] [id number] [facility] 2024-01-05 14:30:00 2024-01-05 15:15:16 Office Visit [facility] 1..840.114 350.1.13.10 4.2.7.2.686 [id number] [facility] 2023-12-30 14:30:00 2023-12-30 14:30:00 Outpatient R SIM SLADE [facility] [id number] [facility] 2023-12-05 10:42:35 2023-12-05 23:59:00 Outpatient R ARON SIU [facility] [id number] [facility] 2023-12-05 10:42:35 2023-12-05 23:59:00 Hospital Encounter [facility]ron Siu [facility] 1..840.114 350.1.13.10 4.2.7.2.686 [id number] [facility] 2023-12-05 00:00:00 2023-12-05 18:48:15 Telephone Aron Siu [facility] 1.2.840.114 350.1.13.10 4.2.7.2.686 [id number] [facility] 2023-12-05 00:00:00 2023-12-05 17:09:38 Telephone Aron Siu [facility] 1..840.114 350.1.13.10 4.2.7.2.686 [id number] [facility] 2023-12-05 10:45:00 2023-12-05 11:09:21 Piece Goods Clerk Visit Lab, Ang - Db Aron Siu [facility] 1..840.114 350.1.13.10 4.2.7.2.686 [id number] [facility] 2023-12-05 10:00:00 2023-12-05 10:42:17 Office Visit Aron Siu [facility] 1.840.114 350.1.13.10 4.2.7.2.686 [id number] [facility] 2023-10-09 10:00:00 2023-10-09 10:54:42 Outpatient NAA MCCANN [facility] [id number] [facility] 2023-10-09 10:00:00 2023-10-09 10:54:42 Office Visit Naa Bojorquez [facility] 1..840.114 350.1.13.10 4.2.7.2.686 [id number] [facility] 2023-10-02 15:15:00 2023-10-02 16:06:00 Emergency X JANKI LI [facility] [id number] [facility] 2023-10-02 15:15:00 2023-10-02 16:06:00 Emergency Janki Li [facility] 1..840.114 350.1.13.10 4.2.7.2.686 [id number] [facility] 2023-06-27 11:30:00 2023-06-27 11:30:00 Outpatient DURGA COSME SHIWAN [facility] [id number] [facility] 2023-05-08 00:00:00 2023-05-08 00:00:00 Orders Only Doctor Unassigned, Valinda [facility] 1.2.840.114 350.1.13.10 4.2.7.2.686 [id number] [facility] 2022-07-14 22:52:00 2022-07-15 00:28:00 Emergency X ANA ROME [facility] [id number] [facility] 2022-07-14 22:52:00 2022-07-15 00:28:00 Emergency Ana Rome S [facility] 1.2.840.114 350.1.13.10 4.2.7.2.686 [id number] [facility] 2021-10-22 00:00:00 2021-10-22 00:00:00 Orders Only Doctor Unassigned, Valinda [facility] 1.2.840.114 350.1.13.10 4.2.7.2.686 [id number] [facility] 2021-08-20 00:00:00 2021-08-20 00:00:00 [facility] 1.2.840.114 350.1.13.10 4.2.7.2.686 [id number] [facility] 2021-08-20 00:00:00 2021-08-20 00:00:00 [facility] 1.2.840.114 350.1.13.10 4.2.7.2.686 [id number] [facility] 2021-06-25 00:00:00 2021-06-25 00:00:00 Orders Only Doctor Unassigned, Valinda [facility] 1.2.840.114 350.1.13.10 4.2.7.2.686 [id number] [facility] 2021-06-11 00:00:00 2021-06-11 00:00:00 Transition of Care Vee Raines 1.2.840.114 350.1.13.10 4.2.7.2.686 [id number] [facility] 2021-06-06 23:58:00 2021-06-08 16:34:00 Outpatient X SHAIKH [facility] [id number] [facility] 2021-06-06 23:58:00 2021-06-08 16:34:00 Outpatient X SHAIKH [facility] [id number] [facility] 2021-06-06 23:58:00 2021-06-08 16:34:00 Emergency Ana Rome [facility] 1..840.114 350.1.13.10 4.2.7.2.686 [id number] [facility] 2020-09-22 15:50:00 2020-09-22 15:50:00 Outpatient GISELA GONZALES [facility] [id number] [facility] 2020-08-30 16:00:00 2020-08-30 15:50:44 Outpatient GISELA GONZALES [facility] [id number] [facility] 2020-06-20 09:40:00 2020-06-20 09:40:00 Outpatient WINYD JAMESON [facility] [id number] [facility] 2004-12-25 12:13:00 2004-12-25 17:57:00 Emergency X DEVEN GIMENEZ [facility] [id number] [facility] Results Test Description Test Time Test Comments Results Result Co mments Source [facility] Notes Date/Time Note Provider Source 2024-06-22 11:41:06 Pt request rx refill. Please Advise. [id number] - [place] - [address] [facility] [address] [id number] ITAL ADMINISTRATIVE ASSISTANT Tiff Thurman [facility] 2024-06-22 11:22:17 Recent Visits Date Type Provider Dept 03/05/24 Office Visit Aron Siu FNP [facility] 01/09/24 Office Visit Marimar Abdullahi PA [facility] 01/05/24 Office Visit Aron Siu FNP [facility] 12/05/23 Office Visit Aron Siu FNP [facility] Showing recent visits within past 540 days with a meds authorizing provider and meeting all other requirements Future Appointments No visits were found meeting these conditions. Showing future appointments within next 150 days with a meds authorizing provider and meeting all other requirements NAS Hagan MA [facility] 2024-06-21 16:14:23 Ronna Pearson is a 58 year old female is calling to get an update on refill request NAS Ferguson [facility] 2024-06-11 07:38:44 Last Refilled: Disp Refills Start End LORETTA amLODIPine 5 mg tablet 90 tablet 1 12/05/2023 -- No Sig: Take 1 tablet by mouth in the morning. Sent to pharmacy as: amLODIPine 5 mg tablet (NORVASC) Class: eRX Route: Oral Order: [id number] Date/Time Signed: 12/05/2023 10:19 E-Prescribing Status: Receipt confirmed by pharmacy (12/05/2023 10:19 AM CDT) Disp Refills Start End LORETTA levothyroxine 75 mcg tablet 90 tablet 1 12/05/2023 -- No Sig: Take 1 tablet by mouth every morning. Sent to pharmacy as: levothyroxine 75 mcg tablet (SYNTHROID) Class: eRX Route: Oral Order: [id number] Date/Time Signed: 12/05/2023 10:19 E-Prescribing Status: Receipt confirmed by pharmacy (12/05/2023 10:19 AM CDT) Notes: Recent Visits Date Type Provider Dept 03/05/24 Office Visit Aron Siu FNP [facility] 01/09/24 Office Visit Marimar Abdullahi PA [facility] 01/05/24 Office Visit Aron Siu FNP [facility] 12/05/23 Office Visit Aron Siu FNP [facility] Showing recent visits within past 540 days with a meds authorizing provider and meeting all other requirements Future Appointments No visits were found meeting these conditions. Showing future appointments within next 150 days with a meds authorizing provider and meeting all other requirements [facility] Lary Liu RN [facility] 2024-05-26 14:06:05 Done [facility] 2024-05-26 12:28:59 Ronna Pearson is a 58 year old female Patient is requesting a referral to: Dept: Psychiatry Reason for referral: F31.9 (ICD-10-CM) - Bipolar 1 disorder F41.8 (ICD-10-CM) - Anxiety with depression F03.94 (ICD-10-CM) - Dementia with anxiety, unspecified dementia severity, unspecified dementia type External referral Name of provider / location patient requesting: [facility] Yaron Calderon Phone number: [phone] Fax number: [phone] No appt latonya Please assist and call back to f/u. [phone] (home) NAS Pizarro [facility] 2024-04-05 09:29:23 Pt calling to let you know she has not been taking the anxiety med and her breathing is under control with the inhaler. She wanted to let you know. Please Advise. ITAL ADMINISTRATIVE ASSISTANT Tiff Thurman [facility] 2024-03-23 10:48:36 Last Refilled: Disp Refills Start End LORETTA albuterol-ipratropium 20-100 mcg/actuation inhaler 4 g 2 02/25/2024 -- -- Sig: Inhale 1 Puff 4 (four) times daily. Sent to pharmacy as: ipratropium 20 mcg-albuteroL 100 mcg/actuation mist for inhalation (COMBIVENT RESPIMAT) Class: eRX Route: Inhalation Order: [id number] Date/Time Signed: 02/25/2024 13:12 E-Prescribing Status: Receipt confirmed by pharmacy (02/25/2024 1:13 PM CDT) Disp Refills Start End LORETTA umeclidinium-vilanteroL (ANORO ELLIPTA) 62.5-25 mcg/actuation inhalation disk 60 Each 2 01/05/2024 -- -- Sig: Inhale 1 Puff in the morning. Sent to pharmacy as: Anoro Ellipta 62.5 mcg-25 mcg/actuation powder for inhalation (umeclidinium-vilanteroL) Class: eRX Route: Inhalation Order: [id number] Date/Time Signed: 01/05/2024 15:00 E-Prescribing Status: Receipt confirmed by pharmacy (01/05/2024 3:00 PM CDT) Notes: please review Recent Visits Date Type Provider Dept 03/05/24 Office Visit Aron Siu FNP [facility] 01/09/24 Office Visit Marimar Abdullahi PA [facility] 01/05/24 Office Visit Aron Siu FNP [facility] 12/05/23 Office Visit Aron Siu FNP [facility] Showing recent visits within past 540 days with a meds authorizing provider and meeting all other requirements Future Appointments Date Type Provider Dept 04/06/24 Appointment Aron Siu FNP [facility] Showing future appointments within next 150 days with a meds authorizing provider and meeting all other requirements ITAL ADMINISTRATIVE ASSISTANT Lary Liu RN [facility] 2024-03-12 09:40:20 Patient informed of pharmacy change, pt stated she wanted to inform provider that SOB has improved since discontinuing propranolol [facility] 2024-03-12 09:40:03 Addended by: KENDAL DENNIS on: 03/12/2024 09:40 AM Modules accepted: Orders T [facility] 2024-03-12 09:35:59 Contacted pharmacy to f[facility] We have to transfer to [facility] T [facility] 2024-03-11 15:52:14 What happened with the neubulizer ,can you look into this? [facility] 2024-03-10 10:00:18 Ronna Pearson is a 58 year old female calling because she hasn't heard anything about the nebulizer she was supposed to get. And she wants to let the dr know she stopped taking PROPRANOLOL Taylor Ferguson [facility] 2024-02-25 14:19:26 Patient notified of all and verbalized understanding. Tanya Linares PRODUCE FIELD MERCHANDISER [facility] 2024-02-25 13:12:51 Done [facility] 2024-02-25 12:10:58 Pt is returning call to Tanya. Please advise. Migdalia Fernando [facility] 2024-02-25 12:03:50 LMTCB Tanya Linares LVN 02/25/2024 Tanya Linares PRODUCE FIELD MERCHANDISER [facility] 2024-02-25 11:19:52 Patient is requesting a call from the clinic in regards to being prescribed nebulizers Burt Posada [facility] 2024-02-25 09:00:02 Patient scheduled 03/05 [facility] 2024-02-25 08:46:29 Ronna Pearson is a 58 year old female Pt called and is scheduled for next available, which is 03/05. She is requesting a temporary fill until her appointment. Please advise. Kathie Kimble [facility] 2024-02-25 08:08:44 Please have pt make an apt [facility] 2024-02-24 16:38:16 Ronna Pearson is a 58 year old female Calling to see if she can get nebulizer machine and solution.Pt says here oxygen's low causing her to have trouble breathing Taylor Ferguson [facility] 2024-02-24 13:11:28 Routing to provider for review and refill. LIZZIE 02/03/24 NOV not scheduled Pam Sin LVN [facility] 2024-01-08 17:14:06 Elgin should be closely monitored with psychiatry, thus I recommend contacting her psychiatrist to see if they can provide a temporary supply until she establishes with a new psychiatrist. ER--> SI/HI PA-PHYSICIAN POLL WATCHER MIDLEVEL PROVIDER [facility] 2024-01-08 10:36:50 Spoke with patient and she stated that she will take her last pill today. She reports that her Psychiatrist recently increased the does to the 2mg and only gave her a weeks worth to see how she did. Patient reports that she tolerated it well and would like to say at that dose. Lary Liu RN [facility] 2024-01-07 14:05:14 Is pt out of meds ? [facility] 2024-01-07 13:09:27 Patient requesting a refill for Rexulti 2mg which was prescribed to her by her Psychiatrist, but is now unable to f/u with him d/t insurance coverage/changes. OV scheduled for 01/08 with Marimar Abdullahi to discuss med request. Please review and advise. Tanya Linares LVN [facility] 2024-01-07 13:02:51 Patient is requiring a call from the clinic to discuss the medication Rexulty. Patient is almost out of the medication. No appointments available. Please call patient MANDO Burt Posada [facility] 2023-12-05 18:46:50 CARDIO REFERRAL PLACED [facility] 2023-12-05 17:07:00 I sent albuterol instead of the combivent as she is also on Anoro Ellipta . They have overlapping meds . Pharm noted Combivent was stopped in August. Ellipta will be daily maintenance and albuterol will be rescue [facility] 2023-12-05 13:11:49 Please review Lary Liu RN [facility] 2023-12-05 12:23:45 Pt also requesting a compudent rescue inhaler also sent to [facility] in [place]. Pt said had told KATIE Siu she also needed that. Ellen Cao [facility] 2023-12-05 10:45:00 Images from the original note were not included. Venipuncture collection performed by clean technique on the left anticubitus. Total of 1 attempts were made. Slight pressure and a bandage/dressing were applied to the site(s). The patient experienced no complications. The following specimens were processed according to instructions and sent to [facility] laboratories per lab order on 12/05/2023 : LT BLUE SST 2 RED LAV 2 PPT DK GREEN (LiHep) DK GREEN (SodH) AIKEN DK BLUE (K2) DK BLUE (S) ACD Blood Culture NIPT/NTD T [facility] 2023-10-02 15:51:39 PT D/C home. GCS15, VS stable. Given D/C paperwork. Pt ambulatory at time of discharge. Pt educated on med usage, follow up care, s/s worsening condition, need for hydration. Pt verbalized understanding. Pt ambulated from ED in NAD Kiana Quinn RN [facility] 2023-10-02 15:15:14 Pt given urine cup and placed back in lobby. [facility] 2023-10-02 15:08:14 Pt arrived ambulatory without assist. Pt states " I think I have infection in my toe that is spreading up my leg." NIOT Aron Mon RN [facility]
[2024-08-29 10:30] LABS: Magnesium 1.9 mg/dL (1.6-2.4)
[2024-08-29] MEDS ORDERED: POTASSIUM CL SA 10 MEQ TAB PO ONE (11:16)
[2024-08-29] MEDS ORDERED: NA CHLORIDE 0.9% 250 ML ONE (11:16)
[2024-08-29] MEDS ORDERED: KCL 20 MEQ/100 mL IVPB 100 ML IV ONE (11:17)
[2024-08-29] MEDS ORDERED: MAGNESIUM SULFATE 1 gm IVPB 1 GM/100 ML BAG IV ONE (11:17)
--- NOTE | 2024-08-29 13:56 | ER ---
Nurse's Notes [facility] Name: Ronna Pearson Age: 58 yrs Sex: Female : 1965 Arrival Date: 08/29/2024 Time: 09:36 Bed 2 Private MD: Diagnosis: Hypokalemia Presentation: 08/29 09:39 Chief complaint: Chief complaint: Patient states: had blood work ordered by PCP, Dr. fidel Calderón, and got a call yesterday with low potassium results, pt reports 2.3 potassium. Pt denies nausea/vomiting/diarrhea. 09:39 Acuity: NILO 3 aa5 09:39 Method Of Arrival: Ambulatory aa5 09:39 Coronavirus screen: At this time, the client does not indicate any symptoms associated aa5 with coronavirus-19. Ebola Screen: Patient denies travel to an Ebola-affected area in the 21 days before illness onset. Initial Sepsis Screen: Does the patient meet any 2 criteria? No. Patient's initial sepsis screen is negative. Does the patient have a suspected source of infection? No. Patient's initial sepsis screen is negative. Risk Assessment: Do you want to hurt yourself or someone else? Patient reports no desire to harm self or others. Onset of symptoms was August 28, 2024. Triage Assessment: 09:50 General: Appears in no apparent distress. comfortable, Behavior is calm, cooperative, bp appropriate for age. Pain: Denies pain. EENT: No deficits noted. Neuro: No deficits noted. Cardiovascular: Rhythm is sinus rhythm. Respiratory: No deficits noted. GI: No signs and/or symptoms were reported involving the gastrointestinal system. : No signs and/or symptoms were reported regarding the genitourinary system. Derm: No deficits noted. Musculoskeletal: No deficits noted. Historical: - Allergies: 09:50 Codeine; aa5 - PMHx: 09:50 Bipolar disorder; COPD; Fibromyalgia; Hypertension; Thyroid problem; aa5 - Immunization history:: Adult Immunizations unknown. - Infectious Disease History:: Denies. - Social history:: Smoking status: Patient reports the use of cigarette tobacco products. - Family history:: not pertinent. - Hospitalizations: : No recent hospitalization is reported. Screenin:50 [facility] ED Fall Risk Assessment (Adult) History of falling in the last 3 months, bp including since admission No falls in past 3 months (0 pts) Confusion or Disorientation No (0 pts) Intoxicated or Sedated No (0 pts) Impaired Gait No (0 pts) Mobility Assist Device Used No (0 pt) Altered Elimination No (0 pt) Score/Fall Risk Level 0 - 2 = Low Risk Oriented to surroundings. Abuse screen: Denies threats or abuse. Denies injuries from another. Nutritional screening: No deficits noted. Tuberculosis screening: No symptoms or risk factors identified. Assessment: 09:50 General: Appears in no apparent distress. comfortable, Behavior is calm, cooperative, bp appropriate for age. 11:30 Reassessment: Patient appears in no apparent distress at this time. No changes from bp previously documented assessment. Patient is alert, oriented x 3, equal unlabored respirations, skin warm/dry/pink. 13:21 Reassessment: Patient appears in no apparent distress at this time. Patient is alert, bp oriented x 3, equal unlabored respirations, skin warm/dry/pink. Vital Signs: 09:39 BP 137 / 93; Pulse 81; Resp 16 S; Temp 97.9(O); Pulse Ox 90% on R/A; Weight 54.88 kg aa5 (R); Height 5 ft. 3 in. (R); 11:25 BP 135 / 87; Pulse 72; Resp 15; Pulse Ox 92% ; bp 13:20 BP 141 / 92; Pulse 75; Resp 18; Pulse Ox 90% ; bp 09:39 Body Mass Index 21.43 (54.88 kg, 160.02 cm) aa5 ED Course: 09:38 Patient arrived in ED. im 09:39 Arm band placed on Patient placed in an exam room, on a stretcher. aa5 09:40 Aleksander Castro MD is Attending Physician. rn 09:43 Niraj Foley, NAZIA is Primary Nurse. bp 09:49 Triage completed. aa5 09:50 Patient has correct armband on for positive identification. bp 10:01 Initial lab(s) drawn, by me, sent to lab. EKG done, by ED staff, reviewed by Aleksander Castro MD. Inserted saline lock: 22 gauge in right forearm, using aseptic technique. Blood collected. Flushed with 10 mL NS. 13:59 Provided Education on: NA. bp 13:59 No provider procedures requiring assistance completed. IV discontinued, intact, bp bleeding controlled, No redness/swelling at site. Pressure dressing applied. Administered Medications: 11:00 Drug: Magnesium Sulfate IVPB 1 grams IVPB once over 1 hrs Route: IVPB; Infused Over: 1 bp hrs; Site: right forearm; 13:59 Follow up: IV Status: Completed infusion bp 11:00 Drug: Potassium Chloride PO 40 mEq PO once Route: PO; bp 11:45 Follow up: Response: No adverse reaction bp 11:45 Drug: Potassium Chloride IV 20 mEq IV at calculated rate once; administer over 1-2 bp hours Route: IV; Rate: calculated rate; Site: right forearm; 13:59 Follow up: IV Status: Completed infusion bp Medication: 13:59 VIS not applicable for this client. bp Outcome: 13:55 Discharge ordered by . rn 13:59 Discharged to home ambulatory, bp 13:59 Condition: stable 13:59 Discharge instructions given to patient, Instructed on discharge instructions, follow up and referral plans. Demonstrated understanding of instructions, follow-up care, 14:00 Patient left the ED. bp Signatures: Aleksander Castro MD MD rn Calderon, Audri, RN RN aa5 Niraj Foley RN RN bp Pau Wooten Corrections: (The following items were deleted from the chart) 09:49 09:39 Chief complaint: aa5 aa5 09:47 Onset of symptoms was August 28, 2024 aa5 09:47 Risk Assessment: Do you want to hurt yourself or someone else? Patient reports no aa5 desire to harm self or others. aa 09:47 Initial Sepsis Screen: Does the patient meet any 2 criteria? No. Patient's aa5 initial sepsis screen is negative. Does the patient have a suspected source of infection? No. Patient's initial sepsis screen is negative. aa 09:47 Ebola Screen: Patient denies travel to an Ebola-affected area in the 21 days aa5 before illness onset. :47 Coronavirus screen: At this time, the client does not indicate any symptoms aa5 associated with coronavirus-19. 09:47 Acuity: NILO 3 aa5 aa 09:47 Method Of Arrival: Ambulatory aa5 09:47 BP 137 / 93; Pulse 81bpm; Resp 16bpm; Spontaneous; Pulse Ox 90% RA; Temp 97.9F aa5 Oral; 54.88 kg Reported; Height 5 ft. 3 in. Reported; BMI: 21.4; aa5
--- NOTE | 2024-08-29 13:56 | EDPHYS ---
Physician Documentation [facility] Name: Ronna Pearson Age: 58 yrs Sex: Female : 1965 Arrival Date: 08/29/2024 Time: 09:36 Bed 2 Private MD: ED Physician Aleksander Castro HPI: 08/29 10:14 This 58 yrs old Female presents to ER via Ambulatory with complaints of Abnormal furniture shampooer Results. 10:14 Patient presents for abnormal lab results. Had labs drawn this last Friday as she rn usually does annually with no complaints and notified today that the potassium was low. Directed to emergency room. Reports generalized weakness. No changes in medication. No new blood pressure medicine or diuretic. No new [id number] medication other than omega-3. Patient has never had potassium issues in the past.. Historical: - Allergies: 09:50 Codeine; aa5 - PMHx: 09:50 Bipolar disorder; COPD; Fibromyalgia; Hypertension; Thyroid problem; aa5 - Immunization history:: Adult Immunizations unknown. - Infectious Disease History:: Denies. - Social history:: Smoking status: Patient reports the use of cigarette tobacco products. - Family history:: not pertinent. - Hospitalizations: : No recent hospitalization is reported. ROS: 10:14 Constitutional: Negative for fever, chills, and weight loss, Neck: Negative for injury, rn pain, and swelling, Cardiovascular: Negative for chest pain, palpitations, and edema, Respiratory: Negative for shortness of breath, cough, wheezing, and pleuritic chest pain, Abdomen/GI: Negative for abdominal pain, nausea, vomiting, diarrhea, and constipation, MS/Extremity: Negative for injury and deformity, Skin: Negative for injury, rash, and discoloration, Neuro: Negative for headache, numbness, tingling, and seizure, Exam: 10:14 Constitutional: This is a well developed, well nourished patient who is awake, alert, rn and in no acute distress. Cardiovascular: Regular rate and rhythm. No pulse deficits. Respiratory: No increased work of breathing, no retractions or nasal flaring. Neuro: Awake and alert, GCS 15, oriented to person, place, time, and situation. Cranial nerves II-XII grossly intact. Motor strength 5/5 in all extremities. Sensory grossly intact. Cerebellar exam normal. Normal gait. 13:53 ECG was reviewed by the Attending Physician. rn Vital Signs: 09:39 BP 137 / 93; Pulse 81; Resp 16 S; Temp 97.9(O); Pulse Ox 90% on R/A; Weight 54.88 kg aa5 (R); Height 5 ft. 3 in. (R); 11:25 BP 135 / 87; Pulse 72; Resp 15; Pulse Ox 92% ; bp 13:20 BP 141 / 92; Pulse 75; Resp 18; Pulse Ox 90% ; bp 09:39 Body Mass Index 21.43 (54.88 kg, 160.02 cm) aa5 MDM: 09:40 Medical Screening Exam initiated rn 13:54 Differential Diagnosis Hypokalemia, hypomagnesemia, renal failure. rn 13:54 Data reviewed: vital signs, nurses notes, lab test result(s), EKG, and as a result, I rn will discharge patient. Counseling: I had a detailed discussion with the patient and/or guardian regarding the historical points, exam findings, and any diagnostic results supporting the discharge/admit diagnosis, lab results, the need for outpatient follow up, to return to the emergency department if symptoms worsen or persist or if there are any questions or concerns that arise at home. Response to treatment: the patient's symptoms have markedly improved after treatment, and as a result, I will discharge patient. ED course: Patient feels improved, potassium completed, patient pulled out her own IV and would like to go home. Has appointment with PCP tomorrow.. 08/29 09:53 Order name: Basic Metabolic Panel; Complete Time: 10:30 rn 08/29 09:53 Order name: Magnesium; Complete Time: 10: rn 08/29 09:53 Order name: EKG; Complete Time: 09: rn 08/29 09:53 Order name: IV Start; Complete Time: 10: rn 08/29 09:53 Order name: EKG - Nurse/Tech; Complete Time: 10: rn EC:53 Rate is 74 beats/min. Rhythm is regular. QRS [place] is Normal. NM interval is normal. QRS rn interval is normal. QT interval is normal. No Q waves. T waves are Normal. No ST changes noted. Clinical impression: NSR w/ Non-specific ST/T Changes. Interpreted by me. Reviewed by me. Administered Medications: 11:00 Drug: Magnesium Sulfate IVPB 1 grams IVPB once over 1 hrs Route: IVPB; Infused Over: 1 bp hrs; Site: right forearm; 13:59 Follow up: IV Status: Completed infusion bp 11:00 Drug: Potassium Chloride PO 40 mEq PO once Route: PO; bp 11:45 Follow up: Response: No adverse reaction bp 11:45 Drug: Potassium Chloride IV 20 mEq IV at calculated rate once; administer over 1-2 bp hours Route: IV; Rate: calculated rate; Site: right forearm; 13:59 Follow up: IV Status: Completed infusion bp Disposition Summary: 08/29/24 13:55 Discharge Ordered Notes: Location: Home rn Problem: new rn Symptoms: have improved rn Condition: Stable rn Diagnosis - Hypokalemia rn Followup: rn - With: Private Physician - When: Tomorrow - Reason: Recheck today's complaints, Re-evaluation by your physician Discharge Instructions: - Discharge Summary Sheet rn - Potassium Content of Foods rn - Hypokalemia rn Forms: - Medication Reconciliation Form rn - Antibiotic corn popper - Prescription Opioid Use rn - Patient Portal Instructions rn - Leadership Thank You Letter rn Signatures: Dispatcher [employer] Aleksander Mena MD MD rn Calderon, Audri RN RN aa5 Niraj Foley RN RN bp
[2024-08-29 14:22] VITALS: TEMP 97.9
[2024-08-29 14:33] VITALS: BP 141/92; O2SAT 90
--- NOTE | 2024-08-30 10:50 | EKG ---
Test Date: 2024-08-29 Test Time: 10:04:05 Customer Support Representative: BALBIR MEASUREMENT RESULTS: Intervals: Rate: 74 VT: 166 QRSD: 80 QT: 422 QTc: 468 [place]: P: 78 VT: 166 QRS: 63 T: 70 INTERPRETIVE STATEMENTS: Normal sinus rhythm Nonspecific T wave abnormality Abnormal ECG Compared to ECG 04/23/2023 17:10:43 T-wave abnormality now present Electronically Signed On 08-30-24 10:47:54 CDT by Bashir Monroe
== END 2024-08-29 14:00 | disposition home or self-care (01) ==
LOC: ER 09:36 → SUPCPDRO 09:36 → ER 14:00
DX: E87.6 Hypokalemia (principal); Z72.0 Tobacco use
CPT/HCPCS: 96365; 93005; 80048; 36415; 83735; 99284; 96366; J3480; J3475; J7050